=== PATIENT | female | born 1980 | race Two or more races ===

== ENCOUNTER 2023-12-03 10:47 | Emergency (ER) | payer BC, OTHER ==
[~2023-12-03] VITALS: Ht 160 cm; Wt 90.0 kg
[2023-12-03 11:14] LABS: Basophils # (auto) 0.1 10 ^3/uL (0-0.2); Basophils % (auto) 1.1 % (0.0-2.0); Eosinophils # (auto) 0.1 10 ^3/uL (0-0.8); Eosinophils % (auto) 1.4 % (0.0-7.0); Hematocrit 40.9 % (36.0-46.0); Hemoglobin 13.5 g/dL (12.2-16.2); Lymphocytes # (auto) 1.6 10 ^3/uL (0.4-5.4); Lymphocytes % (auto) 27.7 % (10.0-50.0); Mean Corpuscular Hgb Conc. 32.9 g/dL (32.0-36.0); Mean Corpuscular Volume 78.8 fL (80.0-100.0); Monocytes # (auto) 0.8 10 ^3/uL (0-1.3); Monocytes % (auto) 14.1 % (0.0-12.0); Neutrophils # (auto) 3.1 10 ^3/uL (1.6-8.6); Neutrophils % (auto) 55.7 % (37.0-80.0); Nucleated Red Blood Cells % 0.1 %; Red Blood Cells 5.19 10^6/uL (4.0-5.20); Red Cell Distribution Width 15.4 % (11.8-14.3); White Blood Cell 5.6 10^3/uL (4.4-10.8)
[2023-12-03 11:30] LABS: Alanine Aminotransferase 45 U/L (7-40); Alkaline Phosphatase 91 U/L (46-116); Anion Gap 8 (5-15); Aspartate Aminotransferase 50 U/L (13-40); BUN/Creatinine Ratio 11.6 (10.0-20.0); Blood Urea Nitrogen 10 mg/dL (9-23); Calcium 9.7 mg/dL (8.5-10.1); Carbon Dioxide 27 mmol/L (20-30); Chloride 101 mmol/L (98-107); Glucose 106 mg/dL (74-106); Potassium 3.2 mmol/L (3.5-5.1); Sodium 136 mmol/L (136-145)
[2023-12-03 11:31] LABS: Albumin 4.8 g/dL (3.2-4.8); Bilirubin, Total 0.3 mg/dL (0.2-1.0); Total Protein 7.8 g/dL (5.7-8.2)
[2023-12-03 16:24] VITALS: BP 105/70; PULSE 86; RESP 18; O2SAT 99
== END 2023-12-03 17:03 | disposition left against medical advice (07) ==
LOC: ER 10:47
DX: R07.89 Other chest pain (principal); I10 Essential (primary) hypertension; E78.5 Hyperlipidemia, unspecified; J45.909 Unspecified asthma, uncomplicated; Z53.29 Procedure and treatment not carried out because of patient's decision for other reasons
CPT/HCPCS: 36415; 71045; 80053; 84484; 85025; 93005

== ENCOUNTER → 2024-03-19 | Outpatient (CLI) | payer BC ==
[~2024-03-19] MED LIST: LISI20TA60 PO
== END | disposition home or self-care (01) ==
LOC: LAB 14:52
PROVIDERS: ATTEND Student in an Organized Health Care Education/Training Program
DX: Z01.812 Encounter for preprocedural laboratory examination (principal)
CPT/HCPCS: 81025

== ENCOUNTER → 2024-03-31 | Outpatient (CLI) | payer BC ==
[~2024-03-31] VITALS: Ht 160 cm; Wt 103.0 kg
[2024-03-31] MEDS: ADENOSINE 86 MG in GIVE UN-DILUTED 0 ML IV ONE (09:04)
== END | disposition home or self-care (01) ==
LOC: XYW 08:02
PROVIDERS: ATTEND Student in an Organized Health Care Education/Training Program
DX: I10 Essential (primary) hypertension (principal); R07.9 Chest pain, unspecified; R29.818 Other symptoms and signs involving the nervous system; E66.01 Morbid (severe) obesity due to excess calories
CPT/HCPCS: 78452; 93017; A9500; J0153

== ENCOUNTER 2024-04-06 09:08 | Emergency (ER) | payer BC ==
[~2024-04-06] VITALS: Ht 160 cm; Wt 103.2 kg
[2024-04-06 09:44] LABS: Basophils # (auto) 0.1 10 ^3/uL (0-0.2); Eosinophils # (auto) 0.2 10 ^3/uL (0-0.8); Eosinophils % (auto) 3.1 % (0.0-7.0); Hematocrit 41.8 % (36.0-46.0); Hemoglobin 13.9 g/dL (12.2-16.2); Lymphocytes # (auto) 2.4 10 ^3/uL (0.4-5.4); Lymphocytes % (auto) 36.1 % (10.0-50.0); Mean Corpuscular Hemoglobin 27.1 pg (28.0-32.0); Mean Corpuscular Hgb Conc. 33.2 g/dL (32.0-36.0); Mean Corpuscular Volume 81.7 fL (80.0-100.0); Monocytes # (auto) 0.3 10 ^3/uL (0-1.3); Monocytes % (auto) 5.1 % (0.0-12.0); Neutrophils # (auto) 3.7 10 ^3/uL (1.6-8.6); Neutrophils % (auto) 54.7 % (37.0-80.0); Nucleated Red Blood Cells % 0.2 %; Red Blood Cells 5.12 10^6/uL (4.0-5.20); Red Cell Distribution Width 16.4 % (11.8-14.3); White Blood Cell 6.7 10^3/uL (4.4-10.8)
[2024-04-06 09:48] LABS: Alanine Aminotransferase 25 U/L (7-40); Albumin 4.7 g/dL (3.2-4.8); Alkaline Phosphatase 84 U/L (46-116); Anion Gap 7 (5-15); Aspartate Aminotransferase 19 U/L (13-40); BUN/Creatinine Ratio 10.3 (10.0-20.0); Bilirubin, Total 0.4 mg/dL (0.2-1.0); Blood Urea Nitrogen 7 mg/dL (9-23); Carbon Dioxide 28 mmol/L (20-30); Chloride 102 mmol/L (98-107); Glucose 106 mg/dL (74-106); Potassium 3.5 mmol/L (3.5-5.1); Sodium 137 mmol/L (136-145); Total Protein 7.9 g/dL (5.7-8.2)
[2024-04-06 11:33] LABS: Urine Bacteria None Seen /hpf (None Seen)
[2024-04-06 11:52] LABS: Urine Blood 2+ /uL (Negative); Urine Clarity Clear (Clear); Urine Protein, UAD Negative (Negative); Urine Specific Gravity 1.011 (1.001-1.035); Urine Urobilinogen Normal (Negative); Urine WBC 3 /hpf (0 - 5)
[2024-04-06 11:55] LABS: Urine Color STRAW (Yellow)
[2024-04-06 17:07] VITALS: BP 146/82; PULSE 78; RESP 19; TEMP 98.1; O2SAT 98
== END 2024-04-06 17:09 | disposition home or self-care (01) ==
LOC: ER 09:08
DX: R07.89 Other chest pain (principal); I10 Essential (primary) hypertension; N88.4 Hypertrophic elongation of cervix uteri; E78.5 Hyperlipidemia, unspecified; J45.909 Unspecified asthma, uncomplicated; Z79.899 Other long term (current) drug therapy
CPT/HCPCS: 36415; 71045; 71260; 74177; 80053; 81001; 81025; 83690; 84484; 85025; 93005; 99285; Q9967

== ENCOUNTER → 2024-05-24 | Outpatient (CLI) | payer BC ==
[2024-05-24 08:34] LABS: Alanine Aminotransferase 28 U/L (7-40); Albumin 4.4 g/dL (3.2-4.8); Alkaline Phosphatase 78 U/L (46-116); Anion Gap 8 (5-15); Aspartate Aminotransferase 18 U/L (13-40); BUN/Creatinine Ratio 12.7 (10.0-20.0); Blood Urea Nitrogen 8 mg/dL (9-23); Calcium 9.3 mg/dL (8.7-10.4); Carbon Dioxide 25 mmol/L (20-30); Chloride 106 mmol/L (98-107); Glucose 101 mg/dL (74-106); Potassium 3.5 mmol/L (3.5-5.1); Sodium 139 mmol/L (136-145)
[2024-05-24 08:35] LABS: Bilirubin, Total 0.4 mg/dL (0.2-1.0); Total Protein 7.2 g/dL (5.7-8.2)
== END | disposition home or self-care (01) ==
LOC: LAB 07:29
PROVIDERS: ATTEND Internal Medicine
DX: I10 Essential (primary) hypertension (principal); K76.0 Fatty (change of) liver, not elsewhere classified; I70.1 Atherosclerosis of renal artery
CPT/HCPCS: 36415; 80053

== ENCOUNTER → 2025-01-04 | Outpatient (CLI) | payer BC ==
[2025-01-04 12:38] LABS: Anion Gap 10 (5-15); Carbon Dioxide 25 mmol/L (20-31); Chloride 103 mmol/L (98-107); Potassium 3.8 mmol/L (3.5-5.1); Sodium 138 mmol/L (136-145)
[2025-01-04 12:44] LABS: BUN/Creatinine Ratio 11.3 (10.0-20.0); Glucose 97 mg/dL (74-106)
[2025-01-04 12:47] LABS: Blood Urea Nitrogen 8 mg/dL (9-23)
== END | disposition home or self-care (01) ==
LOC: LAB 11:47
PROVIDERS: ATTEND Internal Medicine
DX: I10 Essential (primary) hypertension (principal)
CPT/HCPCS: 36415; 80048

== ENCOUNTER → 2025-01-19 | Outpatient (CLI) | payer BC ==
[2025-01-19 07:29] LABS: Urine Bacteria None Seen /hpf (None Seen)
[2025-01-19 07:52] LABS: Basophils # (auto) 0.1 10 ^3/uL (0-0.2); Eosinophils # (auto) 0.3 10 ^3/uL (0-0.8); Eosinophils % (auto) 4.4 % (0.0-7.0); Hemoglobin 14.5 g/dL (12.2-16.2); Lymphocytes # (auto) 2.6 10 ^3/uL (0.4-5.4); Lymphocytes % (auto) 38.5 % (10.0-50.0); Mean Corpuscular Hemoglobin 27.4 pg (28.0-32.0); Mean Corpuscular Volume 82.9 fL (80.0-100.0); Monocytes # (auto) 0.4 10 ^3/uL (0-1.3); Monocytes % (auto) 6.2 % (0.0-12.0); Neutrophils # (auto) 3.4 10 ^3/uL (1.6-8.6); Neutrophils % (auto) 49.9 % (37.0-80.0); Nucleated Red Blood Cells % 0.1 %; Platelet Count (auto) 315 10^3/uL (140-450); Red Blood Cells 5.31 10^6/uL (4.0-5.20); Red Cell Distribution Width 16.1 % (11.8-14.3); White Blood Cell 6.7 10^3/uL (4.4-10.8)
[2025-01-19 08:01] LABS: Alanine Aminotransferase 33 U/L (7-40); Albumin 4.7 g/dL (3.2-4.8); Alkaline Phosphatase 100 U/L (46-116); Anion Gap 9 (5-15); Aspartate Aminotransferase 27 U/L (13-40); BUN/Creatinine Ratio 8.6 (10.0-20.0); Calcium 9.8 mg/dL (8.7-10.4); Carbon Dioxide 25 mmol/L (20-31); Chloride 105 mmol/L (98-107); Potassium 4.2 mmol/L (3.5-5.1); Sodium 139 mmol/L (136-145); Total Protein 7.8 g/dL (5.7-8.2)
[2025-01-19 08:06] LABS: Bilirubin, Total 0.3 mg/dL (0.2-1.0); Blood Urea Nitrogen 6 mg/dL (9-23); Cholesterol 207 mg/dL (< 200); Glucose 122 mg/dL (74-106); HDL Cholesterol 37 mg/dL (40-59); LDL Cholesterol 157 mg/dL (< 100); Triglycerides 196 mg/dL (< 150)
[2025-01-19 08:30] LABS: Urine Blood Negative /uL (Negative); Urine Clarity Clear (Clear); Urine Color Light-Yellow (Yellow); Urine Mucus FEW (None Seen); Urine Protein, UAD TRACE (Negative); Urine Squamous Epithelial Cell FEW /hpf (<5); Urine Urobilinogen Normal (Negative); Urine WBC 2 /HPF (0-5); Urine pH 5.5 (5.0-9.0)
[2025-01-19 11:20] LABS: Free T4 (Free Thyroxine) 0.95 ng/dL (0.89-1.76)
== END | disposition home or self-care (01) ==
LOC: LAB 07:09
PROVIDERS: ATTEND Internal Medicine
DX: Z13.1 Encounter for screening for diabetes mellitus (principal); I10 Essential (primary) hypertension; K76.0 Fatty (change of) liver, not elsewhere classified; Z00.01 Encounter for general adult medical examination with abnormal findings
CPT/HCPCS: 36415; 80053; 80061; 81001; 82607; 83036; 84439; 84443; 85025

== ENCOUNTER → 2025-01-24 | Outpatient (CLI) | payer BC ==
[2025-01-24 14:53] LABS: Chloride 107 mmol/L (98-107); Potassium 3.9 mmol/L (3.5-5.1); Sodium 139 mmol/L (136-145)
[2025-01-24 14:54] LABS: Anion Gap 8 (5-15); Carbon Dioxide 24 mmol/L (20-31)
[2025-01-24 15:01] LABS: Blood Urea Nitrogen 8 mg/dL (9-23); Glucose 143 mg/dL (74-106)
== END | disposition home or self-care (01) ==
LOC: LAB 14:28
PROVIDERS: ATTEND Internal Medicine
DX: D21.9 Benign neoplasm of connective and other soft tissue, unspecified (principal)
CPT/HCPCS: 36415; 80048

== ENCOUNTER 2025-03-17 11:04 | Inpatient (IN) | payer BC ==
[~2025-03-17] VITALS: Ht 152.4 cm; Wt 105.0 kg
--- NOTE | 2025-03-17 11:21 | ECG ---
[facility] Test Date: 2025-03-17 Test Time: 11:09:44 Pat Name: BROOKE BAEZ Department: ER Room: [address] [place] [address] Gender: F Help Desk Agent: JOSIAS : 1980 Requested By: VANNESA MARINELLI Order Number: [id number] Reading MD: Jerry Valero Measurements Intervals [place] Rate: 58 P: 51 [place]: 133 QRS: 86 QRSD: 106 T: 35 QT: 448 QTc: 441 Interpretive Statements Sinus rhythm Electronically Signed On 03-17-2025 21:07:12 PDT by Jerry Valero Please click the below link to view image of tracing.
[2025-03-17] MEDS: ASPirin 81 mg TAB PO ONE (11:33)
[2025-03-17 11:42] LABS: Basophils # (auto) 0.1 10 ^3/uL (0-0.2); Basophils % (auto) 1.4 % (0.0-2.0); Eosinophils # (auto) 0.2 10 ^3/uL (0-0.8); Eosinophils % (auto) 3.7 % (0.0-7.0); Hemoglobin 13.2 g/dL (12.2-16.2); Lymphocytes # (auto) 2.4 10 ^3/uL (0.4-5.4); Lymphocytes % (auto) 37.1 % (10.0-50.0); Mean Corpuscular Hemoglobin 27.5 pg (28.0-32.0); Mean Corpuscular Hgb Conc. 33.9 g/dL (32.0-36.0); Mean Corpuscular Volume 81.3 fL (80.0-100.0); Monocytes # (auto) 0.5 10 ^3/uL (0-1.3); Monocytes % (auto) 7.3 % (0.0-12.0); Neutrophils # (auto) 3.3 10 ^3/uL (1.6-8.6); Neutrophils % (auto) 50.5 % (37.0-80.0); Platelet Count (auto) 410 10^3/uL (140-450); Red Cell Distribution Width 15.7 % (11.8-14.3); White Blood Cell 6.5 10^3/uL (4.4-10.8)
--- NOTE | 2025-03-17 11:47 | ED.PDOC ---
HPI Comments 45y F who presents to the ED for chief complaint of chest pain. Pt states she was at PCP office today for regular check up and states she was referred to the ED for further evaluation of her chest pain. Pt states her chest pain started 4 days prior, constant, pressure like in nature, with pain located diffusely across her chest, with no noted exacerbating or relieving factors. Pt has associated nausea but otherwise denies vomiting, diaphoresis, palpitations, fever, cough, chills, or shortness of breath. Pt otherwise states she was dx with diabetes and recently had been placed on Jiardance. Pt otherwise denies any other symptoms at this time. Chief Complaint: Chest Pain Time Seen by MD: 11:42 Primary Care Provider: DEONNA Lo Notes: Medications, Allergies Allergies: Coded Allergies: NO KNOWN ALLERGIES (Unverified , 12/03/23) Home Meds Active Scripts Lisinopril & Hydrochlorothiazi (Zestoretic) 1 Tab Tab, 1 TAB PO DAILY, #20 TAB Prov:LUPE BURGOS 02/19/24 Reported Medications Lisinopril (Lisinopril) 20 Mg Tab, 1 TAB PO DAILY 03/17/25 Information Source: Patient Mode of Arrival: Ambulatory Brought in by: self Severity: Moderate Timing: Days Duration: Since onset Prehospital treatment: None Location: Chest (R), Chest (L) Quality: Sharp, Pressure Onset: With Light Exertion Cardiac Risk Factors: HTN, Diabetes PE Risk Factors: None History of: None Modifying Factors: Nothing Associated Signs and Symptoms: N/V Past Medical History PAST MEDICAL HISTORY: Anxiety, Asthma, DM, High Lipids, HTN Surgical History: Denies all surgeries COUNTER CASER History: No Pertinent COUNTER CASER History Family History Family History: Reviewed,noncontributory to illness, No family hx of Cancer, No family hx of DM, No family hx of Heart charo, No family hx of HTN, No family hx ofKidney charo, No family hx of Liver charo, No family hx of Lung charo, No family hx of Stroke Social History Smoker: Non-Smoker Alcohol: Denies ETOH Use Drugs: Denies Drug Use Lives In: Home Constitutional: denies: chills, diaphoresis, fatigue, fever, malaise, sweats, weakness, others EENTM: denies: blurred vision, double vision, ear bleeding, ear discharge, ear drainage, ear pain, ear ringing, eye pain, eye redness, hearing loss, mouth pain, mouth swelling, nasal discharge, nose bleeding, nose congestion, nose pain, photophobia, tearing, throat pain, throat swelling, voice changes, others Respiratory: denies: cough, hemoptysis, orthopnea, SOB at rest, shortness of breath, SOB with excertion, stridor, wheezing, others Cardiovascular: reports: chest pain; denies: dizzy spells, diaphoresis, Dyspnea on exertion, edema, irregular heart beat, left arm pain, lightheadedness, palpitations, PND, syncope, others Gastrointestinal: reports: nausea; denies: abdomen distended, abdominal pain, blood streaked bowels, constipated, diarrhea, dysphagia, difficulty swallowing, hematemesis, melena, poor appetite, poor fluid intake, rectal bleeding, rectal pain, vomiting, others Genitourinary: denies: abnormal vagina bleeding, burning, dyspareunia, dysuria, flank pain, frequency, hematuria, incontinence, pain, , vagina discharge, urgency, others Neurological: denies: dizziness, fainting, headache, left sided numbness, left sided weakness, numbness, paresthesia, pre-existing deficit, right sided numbness, right sided weakness, seizure, speech problems, tingling, tremors, weakness, others Musculoskeletal: denies: back pain, gout, joint pain, joint swelling, muscle pain, muscle stiffness, neck pain, others Integumetry: denies: bruises, change in color, change in hair/nails, dryness, laceration, lesions, lumps, rash, wounds, others Allergic/Immunocompromised: denies: Difficulty Healing, Frequent Infections, Hives, Itching, others Hematologic/Lymphatic: denies: anemia, blood clots, easy bleeding, easy bruising, swollen glands, others Endocrine: denies: excessive hunger, excessive sweating, excessive thirst, excessive urination, flushing, intolerance to cold, intolerance to heat, unexpla ined weight gain, unexplained weight loss, others Psychiatric: denies: anxiety, bipolar disorder, depression, hopeless, panic disorder, schizophrenia, sleepless, suicidal, others All Other Systems: Reviewed and Negative Physical Exam General Appearance: Moderate Distress HEENT: Normal ENT Inspection, Pharynx Normal, TMs Normal Neck: Full Range of Motion, Non-Tender, Normal, Normal Inspection Respiratory: Chest Non-Tender, Lungs Clear, No Accessory Muscle Use, No Respiratory Distress, Normal Breath Sounds Cardiovascular: No Edema, No JVD, No Murmur, No Gallop, Normal Peripheral Pulses, Regular Rate/Rhythm Breast Exam: Deferred Gastrointestinal: No Organomegaly, Non Tender, No Pulsatile Mass, Normal Bowel Sounds, Soft Genitalia: Deferred Pelvic: Deferred Rectal: Deferred Extremities: No calf tenderness, Normal capillary refill, Normal inspection, Normal range of motion, Non-tender, No pedal edema Musculoskeletal : Apperance: Normal Neurologic: Alert, supervisor clam bed II-XII nml as Tested, No Motor Deficits, Normal Affect, Normal Mood, No Sensory Deficits Cerebellar Function: Normal Reflexes: Normal Skin: Dry, Normal Color, Warm Lymphatic: No Adenopathy EKG EKG : Pulse Rate (adult): 58 [place]: Normal Cardiac Rhythm: NSR Block: None Hypertrophy: None ST: Normal Was a procedure done? Was a procedure done?: No CP Differential Dx Differential Diagnosis: Angina, Anxiety / Panic Attack, Atrial Dysrhythmia, Electrolyte Disorder, Pulmonary Embolus, PVC's, Sinus Tachycardia Differential Diagnosis: HTN Essential, HTN Accelerated Differential Diagnosis: Chest Wall Pain X-Ray, Labs, Meds, VS Vital Signs Date Time Temp Pulse Resp B/P (MAP) Pulse Ox O2 Delivery O2 Flow Rate FiO2 03/17/25 12:53 61 17 97 Room Air 03/17/25 12:53 98.1 61 17 159/96 (117) 97 98.1 03/17/25 12:10 59 03/17/25 11:47 58 03/17/25 11:09 58 03/17/25 11:05 98.1 67 18 148/86 (106) 97 98.1 Lab Test 03/17/25 12:43 03/17/25 11:20 03/17/25 11:19 Range/Units Troponin I High Sensitivity < 3 L < 3 L </=34 ng/L White Blood Count 6.5 4.4-10.8 10^3/uL Red Blood Count 4.80 4.0-5.20 10^6/uL Hemoglobin 13.2 12.2-16.2 g/dL Hematocrit 39.0 36.0-46.0 % Mean Corpuscular Volume 81.3 80.0-100.0 fL Mean Corpuscular Hemoglobin 27.5 L 28.0-32.0 pg Mean Corpuscular Hemoglobin Concent 33.9 32.0-36.0 g/dL Red Cell Distribution Width 15.7 H 11.8-14.3 % Platelet Count 410 140-450 10^3/uL Mean Platelet Volume 7.5 6.9-10.8 fL Neutrophils (%) (Auto) 50.5 37.0-80.0 % Lymphocytes (%) (Auto) 37.1 10.0-50.0 % Monocytes (%) (Auto) 7.3 0.0-12.0 % Eosinophils (%) (Auto) 3.7 0.0-7.0 % Basophils (%) (Auto) 1.4 0.0-2.0 % Neutrophils # (Auto) 3.3 1.6-8.6 10 ^3/uL Lymphocytes # (Auto) 2.4 0.4-5.4 10 ^3/uL Monocytes # (Auto) 0.5 0-1.3 10 ^3/uL Eosinophils # (Auto) 0.2 0-0.8 10 ^3/uL Basophils # (Auto) 0.1 0-0.2 10 ^3/uL Nucleated Red Blood Cells 0.0 % D-Dimer, Quantitative 0.29 0.0-0.49 mg/L FEU Sodium Level 139 136-145 mmol/L Potassium Level 4.0 3.5-5.1 mmol/L Chloride Level 106 98-107 mmol/L Carbon Dioxide Level 24 20-31 mmol/L Anion Gap 9 5-15 Blood Urea Nitrogen 11 9-23 mg/dL Creatinine 0.60 0.550-1.02 mg/dL Glomerular Filtration Rate Calc 113 >90 mL/min BUN/Creatinine Ratio 18.3 10.0-20.0 Serum Glucose 93 74-106 mg/dL Hemoglobin A1c Pending Calcium Level 10.0 8.7-10.4 mg/dL Triglycerides Level Pending Cholesterol Level Pending LDL Cholesterol Pending HDL Cholesterol Pending Thyroid Stimulating Hormone (TSH) Pending POC Glucose 99 70-106 mg/dl Current Medications Medications (Trade) Dose Ordered Sig/Aviva Route Start Time Stop Time Status Last Admin Aspirin 162 mg ONCE ONCE PO 03/17/25 11:30 03/17/25 11:31 DC 03/17/25 11:33 XY CHEST TWO VIEWS ROUTINE IMPRESSION: No acute cardiopulmonary disease. IV Hep-Lock was established The patient was given aspirin 162 mg by mouth The patient's CBC is within normal limits The chemistry panel is within normal limits The troponin level x2 is negative At this time, the patient was being admitted to the hospitalist A cardiology consult will be obtained. Images Reviewed?: Images reviewed and evaluated by me Time of 1ST Reevaluation: 12:15 Reevaluation 1ST: Unchanged Patient Education/Counseling: Diagnosis, Treatment, Prognosis Family Education/Counseling: No Family Present Additional Information -Reviewed patient's previous visit(s): - The following tests were ordered, and results were reviewed by me: cbc, UA, ekg x3, trop x3, chest x ray, d-dimer, bmp - Additional information was gathered from interviewing the following [facility] Historian: none - I reviewed and agreed with the following test results read by other provider: radiologist - I discussed treatments and results with medical personnel and: patient Comprehensive systems review obtained and negative except for what is stated in the HPI. Departure 1 Departure Time of Disposition: 13:52 Impression: Primary Impression: Acute myocardial ischemia Disposition: 09 ADMITTED INPATIENT Admit to: Tele Condition: Fair Critical Care Note Critical Care Time?: Yes (45 min-critical care time only) Stability Stability form required: Yes Unstable for transfer: Telemetry monitoring (Telemetry monitoring required), ED Physician Assesment (Clinical assesment) Heart Score Heart Score: Heart Score Response (Comments) Value History Slightly Suspicious 0 EKG Normal 0 Age 45-64 1 Risk Factors 1 or 2 risk factors 1 Troponin Normal limit 0 Total 2 I personally scribed for VANNESA MARINELLI MD ([email or web address]) on 03/17/25 at 11:47. Electronically submitted by Ritchie Rayo ([email or web address]). I personally scribed for VANNESA MARINELLI MD ([email or web address]) on 03/17/25 at 12:40. Electronically submitted by Ritchie Rayo ([email or web address]). VANNESA MARINELLI MD March 17, 2025 11:47
[2025-03-17 11:55] LABS: Anion Gap 9 (5-15); Carbon Dioxide 24 mmol/L (20-31); Chloride 106 mmol/L (98-107); Sodium 139 mmol/L (136-145)
[2025-03-17 12:01] LABS: BUN/Creatinine Ratio 18.3 (10.0-20.0); Blood Urea Nitrogen 11 mg/dL (9-23); Glucose 93 mg/dL (74-106)
--- NOTE | 2025-03-17 12:21 | ECG ---
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
--- NOTE | 2025-03-17 12:26 | DVH ---
XY CHEST TWO VIEWS ROUTINE CLINICAL HISTORY: chest COMPARISON: None TECHNIQUE: Frontal and lateral view of the chest was obtained FINDINGS: Lines and Tubes: None Lungs: No focal consolidation. Pleura: No effusion. No pneumothorax. Cardiomediastinal contours: Unremarkable Bones: No acute osseous abnormality. IMPRESSION: No acute cardiopulmonary disease.
[2025-03-17] MEDS ORDERED: MORPHINE SULFATE INJ 2 MG/ml SYRG IV PRN (13:00)
[2025-03-17] MEDS ORDERED: NITROGLYCERIN 0.4 MG SL TAB SL PRN (13:00)
[2025-03-17] MEDS ORDERED: DEXTROSE (50%) 50ML SYRG IV PRN (13:00)
[2025-03-17] MEDS ORDERED: ACETAMINOPHEN 325 MG TAB PO PRN (13:00)
[2025-03-17] MEDS ORDERED: MORPHINE SULFATE 4 MG/ML SYR/VIAL IV PRN (13:00)
[2025-03-17] MEDS ORDERED: LISI20TA56 PO (13:28)
--- NOTE | 2025-03-17 13:43 | DVHHP2 ---
History of Present Illness Reason for Visit: Chest pain History of Present Illness Hannah Llamas is a 45-year-old female with past medical history of hypertension, hyperlipidemia, diabetes type 2, anxiety, asthma, and reported pericarditis who presents to the ED with chest pain x4 days. Patient states that the chest pain suddenly came about was 10/10 and pulling leg pressure constant in nature. She reports that the current pain is 6/10 pressure-like and constant. She reports that she went to her PCP today and was advised to come into the hospital to be evaluated. Patient reported that she was recently diagnosed with diabetes and was given Jardiance to take and developed joint pain in the knees, hands, elbows, shoulders and abdominal pain which then she stopped taking the medication. Patient also reports that he uses CBD gummies to help her with sleep. Patient reported that she took Advil to help with the chest pain but no difference noted. Patient denies any recent trauma or or injury, recent sick contacts, recent ingestion of spoiled food, recent travels, shortness of breath, fever, chills, lightheadedness, weakness, dizziness, nausea, vomiting, or diarrhea. Cardiovascular: HTN, hyperipidemia Pulmonary: Asthma Psych: Anxiety Endocrine: Diabetes Past Medical History Pericarditis Past Surgical History: None Family History: Hypertension, Other (Mom with hypertension) Smoke: No ALCOHOL: none Drugs: Other (CBD gummies) Lives: with Family Domestic Violence: Neg Review of Systems Cardiovascular: Chest Pain Allergies: Coded Allergies: NO KNOWN ALLERGIES (Unverified , 12/03/23) Exam Vital Signs Vital Signs Date Time Temp Pulse Resp B/P (MAP) Pulse Ox O2 Delivery O2 Flow Rate FiO2 03/17/25 12:53 61 17 97 Room Air 03/17/25 12:53 98.1 159/96 (117) 98.1 General Appearance: Alert, Oriented X3, Cooperative, No acute distress HEENT: Atraumatic, PERRLA, EOMI, Mucous membr. moist/pink Respiratory: Clear to auscultation, Normal air movement Cardiovascular: Normal S1, Normal S2, No murmurs Abdominal: Normal bowel sounds, Soft, No tenderness, No hepatospenomegaly, No masses Extremities: No clubbing, No cyanosis, Normal pulses Skin: No significant lesion Neuro: Normal gait, Normal speech, Strength at 5/5 X4 ext, Normal tone, Sensation intact Psych/Mental Status: Mental status NL, Mood NL Labs/Xrays Labs Test 03/17/25 12:43 03/17/25 11:20 03/17/25 11:19 Range/Units Troponin I High Sensitivity < 3 L </=34 ng/L White Blood Count 6.5 4.4-10.8 10^3/uL Red Blood Count 4.80 4.0-5.20 10^6/uL Hemoglobin 13.2 12.2-16.2 g/dL Hematocrit 39.0 36.0-46.0 % Mean Corpuscular Volume 81.3 80.0-100.0 fL Mean Corpuscular Hemoglobin 27.5 L 28.0-32.0 pg Mean Corpuscular Hemoglobin Concent 33.9 32.0-36.0 g/dL Red Cell Distribution Width 15.7 H 11.8-14.3 % Platelet Count 410 140-450 10^3/uL Mean Platelet Volume 7.5 6.9-10.8 fL Neutrophils (%) (Auto) 50.5 37.0-80.0 % Lymphocytes (%) (Auto) 37.1 10.0-50.0 % Monocytes (%) (Auto) 7.3 0.0-12.0 % Eosinophils (%) (Auto) 3.7 0.0-7.0 % Basophils (%) (Auto) 1.4 0.0-2.0 % Neutrophils # (Auto) 3.3 1.6-8.6 10 ^3/uL Lymphocytes # (Auto) 2.4 0.4-5.4 10 ^3/uL Monocytes # (Auto) 0.5 0-1.3 10 ^3/uL Eosinophils # (Auto) 0.2 0-0.8 10 ^3/uL Basophils # (Auto) 0.1 0-0.2 10 ^3/uL Nucleated Red Blood Cells 0.0 % D-Dimer, Quantitative 0.29 0.0-0.49 mg/L FEU Sodium Level 139 136-145 mmol/L Potassium Level 4.0 3.5-5.1 mmol/L Chloride Level 106 98-107 mmol/L Carbon Dioxide Level 24 20-31 mmol/L Anion Gap 9 5-15 Blood Urea Nitrogen 11 9-23 mg/dL Creatinine 0.60 0.550-1.02 mg/dL Glomerular Filtration Rate Calc 113 >90 mL/min BUN/Creatinine Ratio 18.3 10.0-20.0 Serum Glucose 93 74-106 mg/dL Calcium Level 10.0 8.7-10.4 mg/dL POC Glucose 99 70-106 mg/dl XY CHEST TWO VIEWS ROUTINE CLINICAL HISTORY: chest COMPARISON: None TECHNIQUE: Frontal and lateral view of the chest was obtained FINDINGS: Lines and Tubes: None Lungs: No focal consolidation. Pleura: No effusion. No pneumothorax. Cardiomediastinal contours: Unremarkable Bones: No acute osseous abnormality. IMPRESSION: No acute cardiopulmonary disease. Assessment/Plan Assessment/Plan Assessment Chest pain rule out ACS Morbid obesity Substance use History of hypertension History of hyperlipidemia History of diabetes type 2 History of anxiety History of asthma History of pericarditis patient reports Plan Admit to tele Chest x-ray noted Aspirin Antiemetics Pain management EKG Troponin negative D-dimer negative UA Hemoglobin A1c ISS and Accu-Cheks Echo ordered TSH UDS Lipid panel Diet Home medications reconciled DVT prophylaxis-not indicated patient ambulating PUD prophylaxis-not indicated no history of GERD or GI bleed Discussed plan of care with patient and nurse Counseled patient on cessation of substance use Counseled patient on lifestyle modifications, diet, and exercise Plan discussed with: Patient My Orders Orders - PAOLA HELLER BOBBIN DISKER Procedure Category Date Status Time Echo 2d Mode Cardiac US 03/17/25 Verified DOP 13:00 Thyroid Stimulating LAB 03/17/25 Verified Hormone 13:00 Drug Screen LAB 03/17/25 Verified 13:00 Lipid Panel LAB 03/17/25 Verified 13:00 Hemoglobin A1c LAB 03/17/25 Verified 13:00 Glucose Blood PHA 03/17/25 Verified (Accu-Chek Comfort 17:00 Mild Sliding Scale PHA 03/17/25 Verified 17:00 Dextrose 50% Syringe PHA 03/17/25 Verified 13:00 Admit ADMIT 03/17/25 Verified 13:00 Code Status CODE 03/17/25 Verified 13:00 Vital Signs KRISTEN 03/17/25 Verified 13:00 Cleaning Matron KRISTEN 03/17/25 Verified 13:00 Cardiac DIET 03/17/25 Verified Diet-2gna,Lofat,Lochol Lunch Aspirin Tablet PHA 03/18/25 Verified 10:00 Lipitor 40mg Hs PHA 03/17/25 Verified Hi-Intensity 22:00 Morphine Sulfate PHA 03/17/25 Verified Injection 13:00 Acetaminophen Tablet PHA 03/17/25 Verified (Tylenol Tablet) 13:00 Complete Blood Count LAB 03/18/25 Verified 04:00 Basic Metabolic Panel LAB 03/18/25 Verified 04:00 Magnesium LAB 03/18/25 Verified 04:00 Nitroglycerin PHA 03/17/25 Verified Sublingual (Ntrostat 13:00 Ondansetron Hcl PHA 03/17/25 Verified (Zofran) 13:00 Electrocardigram EKG 03/18/25 Verified 04:00 Troponin-I Hs LAB 03/17/25 Verified 13:00 Cardiac KRISTEN 03/17/25 Verified Rehabilitation - Outpa Nitroglycerin PHA 03/17/25 Verified Sublingual (Ntrostat 13:00 Morphine Sulfate PHA 03/17/25 Verified Injection 13:00 Stat Ekg For Chest KRISTEN 03/17/25 Verified Pain 13:00 Notify Md Of Changes KRISTEN 03/17/25 Verified From Base 13:00 [facility] 03/17/25 Verified 24 Hours 13:00 Emergency Dysrhythmia KRISTEN 03/17/25 Verified Protocol 13:00 Rhythm Strips Once KRISTEN 03/17/25 Verified Every Shift 13:00 Oxygen By Nasal RT 03/17/25 Verified Cannula 13:00 Lisinopril Tablet PHA 03/18/25 Verified (Zestril Tablet) 10:00 Date of Service: March 17, 2025 Billing Provider: PAOLA HELLER Common Visit Codes: [id number] INP/OBS CARE (HIGH) PAOLA HELLER March 17, 2025 13:42
[2025-03-17 13:55] LABS: HDL Cholesterol 41 mg/dL (40-59)
[2025-03-17 14:02] LABS: Cholesterol 212 mg/dL (< 200); LDL Cholesterol 161 mg/dL (< 100); Triglycerides 229 mg/dL (< 150)
[2025-03-17 14:28] LABS: Amphetamine Screen, Urine Neg (NEGATIVE); Barbiturate Scree,Urine Neg (NEGATIVE); Benzodiazephine Screen, Urine Neg (NEGATIVE); Cannabinoid Screen, Urine Pos (NEGATIVE); Cocaine Screen, Urine Neg (NEGATIVE); Opiate Scree,Urine Neg (NEGATIVE); Phencyclidine Screen, Urine Neg (NEGATIVE)
[2025-03-17] MEDS: ACCU-CHEK COMFORT CURVE STRIP VI SCH (16:49)
[2025-03-17 16:50] VITALS: BP 162/77; PULSE 65; RESP 18; TEMP 98.2; O2SAT 97
[2025-03-17] MEDS: InsuLIN REG 1unit/0.01ml Soln (100units/ml) SC SCH (16:50)
[2025-03-17] MEDS ORDERED: hydrALAZINE HCL 20 MG/ML VL IV ONE (17:15)
[2025-03-17] MEDS ORDERED: hydrALAZINE HCL 20 MG/ML VL IV PRN (17:15)
[2025-03-17] MEDS: hydrALAZINE HCL 20 MG/ML VL IV ONE (18:37)
[2025-03-17 21:00] VITALS: BP 172/82; PULSE 74; RESP 17; TEMP 98.4; O2SAT 98
[2025-03-17] MEDS: LISINOPRIL 20 MG TAB PO ONE (21:17)
[2025-03-17] MEDS: ATORVASTATIN 20 MG TAB PO SCH (21:17)
[2025-03-17 21:50] VITALS: BP 146/81
[2025-03-17] MEDS: NITROGLYCERIN 0.4 MG SL TAB SL PRN (21:57)
[2025-03-17] MEDS ORDERED: HYDROcodone-ACET 5/325MG TAB PO PRN (22:30)
[2025-03-17 22:40] VITALS: BP 144/80; PULSE 54; RESP 18; TEMP 97.6; O2SAT 99
[2025-03-18 01:00] VITALS: BP 155/85; PULSE 55; RESP 18; TEMP 97.9; O2SAT 98
[2025-03-18] MEDS: ONDANSETRON HCL 4 MG/2 ML VIAL IV PRN (04:42)
[2025-03-18 04:56] VITALS: BP 150/84
[2025-03-18 05:00] VITALS: BP 168/98; PULSE 73; RESP 18; TEMP 97.8; O2SAT 99
[2025-03-18 05:46] LABS: Basophils # (auto) 0.1 10 ^3/uL (0-0.2); Basophils % (auto) 0.8 % (0.0-2.0); Eosinophils # (auto) 0.4 10 ^3/uL (0-0.8); Eosinophils % (auto) 4.7 % (0.0-7.0); Hemoglobin 13.6 g/dL (12.2-16.2); Lymphocytes # (auto) 2.6 10 ^3/uL (0.4-5.4); Lymphocytes % (auto) 34.1 % (10.0-50.0); Mean Corpuscular Hemoglobin 27.1 pg (28.0-32.0); Mean Corpuscular Hgb Conc. 33.1 g/dL (32.0-36.0); Monocytes # (auto) 0.5 10 ^3/uL (0-1.3); Monocytes % (auto) 7.1 % (0.0-12.0); Neutrophils # (auto) 4.1 10 ^3/uL (1.6-8.6); Neutrophils % (auto) 53.3 % (37.0-80.0); Nucleated Red Blood Cells % 0.1 %; Platelet Count (auto) 421 10^3/uL (140-450); Red Cell Distribution Width 15.8 % (11.8-14.3); White Blood Cell 7.6 10^3/uL (4.4-10.8)
[2025-03-18 05:59] LABS: Anion Gap 11 (5-15); Carbon Dioxide 25 mmol/L (20-31); Chloride 104 mmol/L (98-107); Potassium 3.7 mmol/L (3.5-5.1); Sodium 140 mmol/L (136-145)
[2025-03-18 06:00] LABS: Calcium 9.5 mg/dL (8.7-10.4)
[2025-03-18 06:05] LABS: BUN/Creatinine Ratio 12.7 (10.0-20.0); Magnesium 2.1 mg/dL (1.6-2.6)
[2025-03-18 06:15] LABS: Blood Urea Nitrogen 8 mg/dL (9-23); Glucose 114 mg/dL (74-106)
[2025-03-18 08:00] VITALS: PULSE 56; PULSE 60; RESP 16; O2SAT 96
[2025-03-18 09:00] VITALS: BP 142/88; PULSE 60; RESP 18; TEMP 97.8; O2SAT 96
[2025-03-18] MEDS: LISINOPRIL 20 MG TAB PO SCH (09:56)
[2025-03-18] MEDS: ASPirin 81 mg TAB PO SCH (09:56)
--- NOTE | 2025-03-18 13:35 | DVHPN2 ---
Reviewed: Care Plan, H&P, Labs, Medications, Previous Orders, Radiology Changes from previous H/P or p: No Changes Cardiovascular: Chest Pain Objective Vitals Vital Signs Date Time Temp Pulse Resp B/P (MAP) Pulse Ox O2 Delivery O2 Flow Rate FiO2 03/18/25 09:56 142/88 03/18/25 09:00 97.8 60 18 96 97.8 03/18/25 08:00 Room Air* 0 21 Intake/Output Intake and Output 03/18/25 07:00 Intake Total 350 ml Balance 350 ml Intake Oral 350 ml # Voids 4 Medications Current Medications Medications Dose Ordered Sig/Aviva Route Start Time Stop Time Status Last Admin Dose Admin Diagnostic Test (Pha) 1 strip ACHS 03/17/25 17:00 03/18/25 11:55 1 STRIP Insulin Human Regular ACHS SC 03/17/25 17:00 Dextrose 50 ml UD PRN IV 03/17/25 13:00 Aspirin 81 mg DAILY PO 03/18/25 10:00 03/18/25 09:56 81 MG Atorvastatin Calcium 40 mg HS PO 03/17/25 22:00 03/17/25 21:17 40 MG Acetaminophen 650 mg Q6HP PRN PO 03/17/25 13:00 Ondansetron HCl 4 mg Q4HP PRN IV 03/17/25 13:00 03/18/25 04:42 4 MG Nitroglycerin 0.4 mg Q5MINP PRN SL 03/17/25 13:00 03/18/25 04:45 0.4 MG Morphine Sulfate 2 mg Q30M PRN IV 03/17/25 13:00 Lisinopril 20 mg DAILY PO 03/18/25 10:00 03/18/25 09:56 20 MG Hydralazine HCl 10 mg ONCE PRN IV 03/17/25 17:15 UNV Acetaminophen/ Hydrocodone Bitart 1 tab Q6HPRN PRN PO 03/17/25 22:30 Laboratory Results Laboratory Tests 03/18/25 05:11 Chemistry Test 03/18/25 05:11 Calcium Level 9.5 mg/dL (8.7-10.4) Magnesium Level 2.1 mg/dL (1.6-2.6) Labs and/or images reviewed: Labs reviewed by me, Image(s) reviewed by me Assessment/Plan Assessment/Plan Chest pain rule out coronary artery disease: Treatment per ACS protocol consult for Dr. Ritchie Benson Hypotension Hypercholesterolemia: Lipitor Type 2 diabetes: Insulin sliding scale Anxiety Asthma History of pericarditis Marijuana abuse Time spent 48 minutes Plan discussed with: Patient My Orders Orders - MADYSON MORA MD Procedure Category Date Status Time * Cardiology Consult CONS 03/18/25 Verified 13:31 Date of Service: March 18, 2025 Billing Provider: MADYSON MORA MD Common Visit Codes: [id number] INP/OBS CARE(HIGH) MADYSON MORA MD March 18, 2025 13:35
--- NOTE | 2025-03-18 17:16 | DVHINCON2 ---
Date of service: March 18, 2025 Referring Physician Smith Reason for Consultation Chest pain History of Present Illness This is a 45 year old female with a PMH of Anxiety, Asthma, DM, High Lipids, HTN who presents to the ED for a complaint of chest pain x4 days. Patient states she was at her PCP's office for regular check up and states she was referred to the ED for further evaluation of her chest pain. Patient described her chest pain as constant, pressure like in nature, with pain located diffusely across her chest, with no noted exacerbating or relieving factors. Patient has associated nausea. Patient notes she was diagnosed with diabetes and recently had been placed on J ardiance. Chest x-ray showed NAD. EKG is NSR at 58. Troponin is negative x3. Patient was admitted to the hospital. I am asked to consult on this patient. Family History: FH: cancer G8 MOTHER G8 FATHER Hypertension G8 MOTHER Allergies: Coded Allergies: Penicillins (Verified Allergy, Mild, 03/17/25) Home Meds Active Scripts Lisinopril & Hydrochlorothiazi (Zestoretic) 1 Tab Tab, 1 TAB PO DAILY, #20 TAB Prov:LUPE BURGOS 02/19/24 Reported Medications Lisinopril (Lisinopril) 20 Mg Tab, 1 TAB PO DAILY 03/17/25 Current Medications Current Medications Medications (Trade) Dose Ordered Sig/Aviva Route PRN Reason Start Time Stop Time Status Last Admin Diagnostic Test (Pha) (Accu-Chek Comfort Curve T) 1 strip ACHS 03/17/25 17:00 03/18/25 14:25 DC 03/18/25 11:55 Insulin Human Regular (InsuLIN R) ACHS SC 03/17/25 17:00 03/18/25 14:25 DC Aspirin 81 mg DAILY PO 03/18/25 10:00 03/18/25 14:25 DC 03/18/25 09:56 Atorvastatin Calcium (Lipitor) 40 mg HS PO 03/17/25 22:00 03/18/25 14:25 DC 03/17/25 21:17 Lisinopril (Zestril Tablet) 20 mg DAILY PO 03/18/25 10:00 03/18/25 14:25 DC 03/18/25 09:56 Hydralazine HCl (Apresoline Injection) 10 mg ONCE PRN IV SBP>150 03/17/25 17:15 UNV Acetaminophen/ Hydrocodone Bitart (Franklin 5/325MG Tab) 1 tab Q6HPRN PRN PO MODERATE PAIN (4-6 PAIN SCALE) 03/17/25 22:30 03/18/25 14:25 DC Review of Systems Constitutional: denies: chills, diaphoresis, fatigue, fever, malaise, sweats, weakness, others EENTM: denies: blurred vision, double vision, ear bleeding, ear discharge, ear drainage, ear pain, ear ringing, eye pain, eye redness, hearing loss, mouth pain, mouth swelling, nasal discharge, nose bleeding, nose congestion, nose pain, photophobia, tearing, throat pain, throat swelling, voice changes, others Respiratory: denies: cough, hemoptysis, orthopnea, SOB at rest, shortness of breath, SOB with excertion, stridor, wheezing, others Cardiovascular: reports: chest pain; denies: dizzy spells, diaphoresis, Dyspnea on exertion, edema, irregular heart beat, left arm pain, lightheadedness, palpitations, PND, syncope, others Gastrointestinal: reports: nausea; denies: abdomen distended, abdominal pain, blood streaked bowels, constipated, diarrhea, dysphagia, difficulty swallowing, hematemesis, melena, poor appetite, poor fluid intake, rectal bleeding, rectal pain, vomiting, others Genitourinary: denies: abnormal vagina bleeding, burning, dyspareunia, dysuria, flank pain, frequency, hematuria, incontinence, pain, , vagina discharge, urgency, others Neurological: denies: dizziness, fainting, headache, left sided numbness, left sided weakness, numbness, paresthesia, pre-existing deficit, right sided numbness, right sided weakness, seizure, speech problems, tingling, tremors, weakness, others Musculoskeletal: denies: back pain, gout, joint pain, joint swelling, muscle pain, muscle stiffness, neck pain, others Integumetry: denies: bruises, change in color, change in hair/nails, dryness, laceration, lesions, lumps, rash, wounds, others Allergic/Immunocompromised: denies: Difficulty Healing, Frequent Infections, Hives, Itching, others Hematologic/Lymphatic: denies: anemia, blood clots, easy bleeding, easy bruising, swollen glands, others Endocrine: denies: excessive hunger, excessive sweating, excessive thirst, excessive urination, flushing, intolerance to cold, intolerance to heat, unexplained weight gain, unexplained weight loss, others Psychiatric: denies: anxiety, bipolar disorder, depression, hopeless, panic disorder, schizophrenia, sleepless, suicidal, others All Other Systems: Reviewed and Negative Vital Signs Vital Signs Date Time Temp Pulse Resp B/P (MAP) Pulse Ox O2 Delivery O2 Flow Rate FiO2 03/18/25 09:56 142/88 03/18/25 09:00 97.8 60 18 96 97.8 03/18/25 08:00 Room Air* 0 21 Physical Exam GENERAL: Alert and oriented x 3. No acute distress. EYES: PERRL, EOMI. Anicteric. HENT: Moist mucous membranes. LUNGS: Clear to auscultation bilaterally. CARDIOVASCULAR: Regular rate and rhythm. ABDOMEN: Soft, nontender and nondistended. EXTREMITIES: No edema. NEUROLOGIC: No focal neurological deficits. SKIN: Warm, dry. Labs/Diagnostic Data Labs Test 03/18/25 11:48 03/18/25 05:11 03/17/25 14:16 03/17/25 11:30 Range/Units POC Glucose 103 70-106 mg/dl White Blood Count 7.6 4.4-10.8 10^3/uL Red Blood Count 5.00 4.0-5.20 10^6/uL Hemoglobin 13.6 12.2-16.2 g/dL Hematocrit 41.0 36.0-46.0 % Mean Corpuscular Volume 82.0 80.0-100.0 fL Mean Corpuscular Hemoglobin 27.1 L 28.0-32.0 pg Mean Corpuscular Hemoglobin Concent 33.1 32.0-36.0 g/dL Red Cell Distribution Width 15.8 H 11.8-14.3 % Platelet Count 421 140-450 10^3/uL Mean Platelet Volume 7.4 6.9-10.8 fL Neutrophils (%) (Auto) 53.3 37.0-80.0 % Lymphocytes (%) (Auto) 34.1 10.0-50.0 % Monocytes (%) (Auto) 7.1 0.0-12.0 % Eosinophils (%) (Auto) 4.7 0.0-7.0 % Basophils (%) (Auto) 0.8 0.0-2.0 % Neutrophils # (Auto) 4.1 1.6-8.6 10 ^3/uL Lymphocytes # (Auto) 2.6 0.4-5.4 10 ^3/uL Monocytes # (Auto) 0.5 0-1.3 10 ^3/uL Eosinophils # (Auto) 0.4 0-0.8 10 ^3/uL Basophils # (Auto) 0.1 0-0.2 10 ^3/uL Nucleated Red Blood Cells 0.1 % Sodium Level 140 136-145 mmol/L Potassium Level 3.7 3.5-5.1 mmol/L Chloride Level 104 98-107 mmol/L Carbon Dioxide Level 25 20-31 mmol/L Anion Gap 11 5-15 Blood Urea Nitrogen 8 L 9-23 mg/dL Creatinine 0.63 0.550-1.02 mg/dL Glomerular Filtration Rate Calc 111 >90 mL/min BUN/Creatinine Ratio 12.7 10.0-20.0 Serum Glucose 114 H 74-106 mg/dL Calcium Level 9.5 8.7-10.4 mg/dL Magnesium Level 2.1 1.6-2.6 mg/dL Troponin I High Sensitivity < 3 L </=34 ng/L Urine Opiates Screen Neg NEGATIVE Urine Fentanyl Screen Neg NEGATIVE Urine Barbiturates Screen Neg NEGATIVE Urine Phencyclidine Screen Neg NEGATIVE Urine Amphetamines Screen Neg NEGATIVE Urine Benzodiazepines Screen Neg NEGATIVE Urine Cocaine Screen Neg NEGATIVE Urine Cannabinoids Screen Pos NEGATIVE Test 03/17/25 11:20 Range/Units D-Dimer, Quantitative 0.29 0.0-0.49 mg/L FEU Hemoglobin A1c 6.2 H <5.7 % A1C Triglycerides Level 229 H < 150 mg/dL Cholesterol Level 212 H < 200 mg/dL LDL Cholesterol 161 H < 100 mg/dL HDL Cholesterol 41 40-59 mg/dL Thyroid Stimulating Hormone (TSH) 0.97 0.55-4.78 uIU/mL Assessment Chest pain. Morbid obesity. Substance use. Hypertension. Hyperlipidemia. Diabetes type 2. Anxiety. Asthma. Plan/Recommendation I agree with your ongoing assessment and care of plan. Telemetry reviewed. Echocardiogram. Aspirin, Lipitor. IV Hydralazine for SBP > 150. Morphine and Franklin for pain management. Additional plan as per the hospital course. A total of 45 minutes was spent reviewing the patient record, examining the patient, making a diagnostic and therapeutic plan, discussing this plan with medical personnel, following up on diagnostic studies and following the patient for clinical stability excluding any and all procedures. At least 50% of this time was spent in direct, [id number] contact. Plan discussed with: Patient SUZAN FELDER MD March 18, 2025 14:32
--- NOTE | 2025-03-19 07:53 | DVHDS2 ---
Discharge Summary Date of Admission March 17, 2025 at 13:00 Date of Discharge: March 18, 2025 Admitting Diagnosis Chest pain Wounds: None Labs/Diagnostic Data: Laboratory Results Test 03/18/25 11:48 03/18/25 05:11 03/17/25 14:16 03/17/25 11:30 POC Glucose 103 mg/dl (70-106) White Blood Count 7.6 10^3/uL (4.4-10.8) Red Blood Count 5.00 10^6/uL (4.0-5.20) Hemoglobin 13.6 g/dL (12.2-16.2) Hematocrit 41.0 % (36.0-46.0) Mean Corpuscular Volume 82.0 fL (80.0-100.0) Mean Corpuscular Hemoglobin 27.1 pg (28.0-32.0) Mean Corpuscular Hemoglobin Concent 33.1 g/dL (32.0-36.0) Red Cell Distribution Width 15.8 % (11.8-14.3) Platelet Count 421 10^3/uL (140-450) Mean Platelet Volume 7.4 fL (6.9-10.8) Neutrophils (%) (Auto) 53.3 % (37.0-80.0) Lymphocytes (%) (Auto) 34.1 % (10.0-50.0) Monocytes (%) (Auto) 7.1 % (0.0-12.0) Eosinophils (%) (Auto) 4.7 % (0.0-7.0) Basophils (%) (Auto) 0.8 % (0.0-2.0) Neutrophils # (Auto) 4.1 10 ^3/uL (1.6-8.6) Lymphocytes # (Auto) 2.6 10 ^3/uL (0.4-5.4) Monocytes # (Auto) 0.5 10 ^3/uL (0-1.3) Eosinophils # (Auto) 0.4 10 ^3/uL (0-0.8) Basophils # (Auto) 0.1 10 ^3/uL (0-0.2) Nucleated Red Blood Cells 0.1 % Sodium Level 140 mmol/L (136-145) Potassium Level 3.7 mmol/L (3.5-5.1) Chloride Level 104 mmol/L (98-107) Carbon Dioxide Level 25 mmol/L (20-31) Anion Gap 11 (5-15) Blood Urea Nitrogen 8 mg/dL (9-23) Creatinine 0.63 mg/dL (0.550-1.02) Glomerular Filtration Rate Calc 111 mL/min (>90) BUN/Creatinine Ratio 12.7 (10.0-20.0) Serum Glucose 114 mg/dL (74-106) Calcium Level 9.5 mg/dL (8.7-10.4) Magnesium Level 2.1 mg/dL (1.6-2.6) Troponin I High Sensitivity < 3 ng/L (</=34) Urine Opiates Screen Neg (NEGATIVE) Urine Fentanyl Screen Neg (NEGATIVE) Urine Barbiturates Screen Neg (NEGATIVE) Urine Phencyclidine Screen Neg (NEGATIVE) Urine Amphetamines Screen Neg (NEGATIVE) Urine Benzodiazepines Screen Neg (NEGATIVE) Urine Cocaine Screen Neg (NEGATIVE) Urine Cannabinoids Screen Pos (NEGATIVE) Test 03/17/25 11:20 D-Dimer, Quantitative 0.29 mg/L FEU (0.0-0.49) Hemoglobin A1c 6.2 % A1C (<5.7) Triglycerides Level 229 mg/dL (< 150) Cholesterol Level 212 mg/dL (< 200) LDL Cholesterol 161 mg/dL (< 100) HDL Cholesterol 41 mg/dL (40-59) Thyroid Stimulating Hormone (TSH) 0.97 uIU/mL (0.55-4.78) Other Laboratory Tests 03/18/25 05:11 Brief Hx & Hospital Course: 45-year-old female with a history of hypertension hypercholesterolemia diabetes anxiety asthma history of pericarditis chronic current marijuana abuse came in for chest pain troponin negative x3 treated per ACS protocol cardiology consult by Dr. Chaparro Benson cholesterol very high 220 placed on Lipitor. While awaiting further stabilization the patient decided to leave AMA and left AMA. General condition satisfactory at the time of leaving AMA per nurse's notes. Patient was explained about the consequences and complications of leaving AMA including possible and she verbalized understand Consults/Reason for consult Cardiology Dr. Ritchie Benson Operations or Procedures None Condition at Discharge: Fair Final Diagnosis/Problems List Chest pain rule out coronary artery disease: Treatment per ACS protocol consult for Dr. Ritchie Benson Hypotension Hypercholesterolemia: Lipitor Type 2 diabetes: Insulin sliding scale Anxiety Asthma History of pericarditis Marijuana abuse Discharge Disposition: AMA Discharge Instruct/Medications Diet comment: Not applicable Patient left AMA Activity comment: Not applicable Patient left AMA Follow Up/Referral: Not applicable Patient left AMA Medications: Not applicable Patient left AMA 39 (Time taken for discharge summary 39 mts) Discharge Statement: "Patient was advised to return to the ER or call 911 if any headaches, dizziness, shortness of breath, chest pain, abdominal pain, bleeding, fevers, or worsening of medical condition. Patient was counseled about treatment plan, medications, possible side effects, patientverbalized understanding. All questions were answered to the best of my ability. This discharge took greater then 30 minutes in planning, reviewing documentation, counseling the patient, and discussing with other team members." ASSESSMENT ASSESSMENT Hospital Course Left AMA Assessment Date of Service: March 19, 2025 Billing Provider: MADYSON MORA MD Common Visit Codes: 54325-JRJ/OBS DISCH DAY >30min MADYSON MORA MD March 19, 2025 07:53
--- NOTE | 2025-03-20 02:11 | DVHSR ---
APPROVED REPORT EXAM: Two-dimensional and M-mode echocardiogram with Doppler and color Doppler. Blood Pressure: 146/78 mmHg INDICATION Chest Pain RISK FACTORS Obesity: Height: 5'0, Weight: 213 DIMENSIONS LVDd4.3 (3.8-5.7cm)LA (2D)3.9 (1.9-4.0cm)Aortic Root2.8 (2.0-3.7cm) LVDs3.4 (2.5-4.0cm)LA (MM) (1.9-4.0cm)Aortic Cusp Exc1.8 (1.5-2.0cm) EF (%) 55.0 (55-70%)Rt. Atrium3.8 (1.9-4.0cm)Asc. Aorta cm IVSd1.2 (0.7-1.1cm)RV (D)4.2 (1.8-2.4cm) PWd1.0 (0.7-1.1cm) Mitral Valve MitralMitral Stenosis E wave0.75m/sMV Mean GR.mmHg A wave0.83m/sMV Peak GR.53mmHg E/A ratio0.92D MVAcm2 DECEL [id number] 1/2 Timems Aortic Valve Aortic ValveAortic Stenosis V11.01m/Duy Mean GR.3mmHg V21.19m/Duy Peak GR.5mmHg LVOT Diameter2.0 (1.8-2.4cm)Doppler AVA2.67cm2 Pulmonic Valve V21.17m/s Conclusion LV EF IS 65% NORMAL VALVES NORMAL RV FUNCTION NO EFFUSION
== END 2025-03-18 14:10 | disposition left against medical advice (07) | DRG 303 ==
LOC: ER 11:04 → OVERFLOW 13:00 → TELE-EAST 22:40
PROVIDERS: ADMIT Family Medicine; ATTEND Family Medicine
DX: I25.10 Atherosclerotic heart disease of native coronary artery without angina pectoris (principal); Z68.42 Body mass index [BMI] 45.0-49.9, adult; E66.01 Morbid (severe) obesity due to excess calories; Z53.29 Procedure and treatment not carried out because of patient's decision for other reasons; I10 Essential (primary) hypertension; E11.9 Type 2 diabetes mellitus without complications; F41.9 Anxiety disorder, unspecified; I95.9 Hypotension, unspecified; J45.909 Unspecified asthma, uncomplicated; F12.10 Cannabis abuse, uncomplicated; E78.00 Pure hypercholesterolemia, unspecified; I51.3 Intracardiac thrombosis, not elsewhere classified; Z82.49 Family history of ischemic heart disease and other diseases of the circulatory system; Z88.0 Allergy status to penicillin; Z79.899 Other long term (current) drug therapy
CPT/HCPCS: 36415; 71046; 80048; 80061; 80307; 82962; 83036; 83735; 84443; 84484; 85025; 85379; 93005; 93306; 96374; 99291; G0378; J2405

== ENCOUNTER 2025-03-22 23:18 | Inpatient (IN) | payer BC ==
[~2025-03-22] VITALS: Ht 160 cm; Wt 103.0 kg
[~2025-03-22 23:18] MED LIST changes: +LISI20TA56 PO
[2025-03-23] VITALS (8 sets, daily range): BP systolic 133–176; BP diastolic 76–100; PULSE 49–75; RESP 17–18; TEMP 97.4–97.8; O2SAT 93–100
[2025-03-23] MEDS: PANTOPRAZOLE 40 MG/10 ML VIAL INJ IV SCH (02:13)
[2025-03-23] MEDS: SUCRALFATE 1 GM TAB PO SCH (02:13)
[2025-03-23] MEDS: LABETALOL HCL 20 MG/4 ML VL IV ONE (02:14)
--- NOTE | 2025-03-23 03:38 | DVHHP2 ---
History of Present Illness History of Present Illness 45-year-old female with PMHx of hypertension, hyperlipidemia, prediabetes, anxiety, asthma?, and prior episode of pericarditis?, presenting with recurrent chest pain. She was previously seen in the ED on 03/17/25 with sudden-onset 10/10 chest pain radiating to the left leg. She was advised to follow up by her PCP due to abnormal vitals and symptoms but left AMA citing family responsibilities. At that time, troponins were negative, EKG showed NSR with HR in the 50s, and BP was elevated. She now returns due to persistent chest pain radiating to the shoulder and left arm, exacerbated by movement and palpation. On arrival, BP was >200/100, consistent with hypertensive emergency. She denies fever, chills, cough, SOB, or syncope. Troponins again negative. EKG repeated showing NSR, HR 56. She now agrees to stay for evaluation and management. PMHx: HTN, hyperlipidemia, prediabetes asthma, anxiety, prior pericarditis? PSHx: None Meds: Lisinopril 20 mg CBD gummies FHx: Mother with hypertension SHx: No tobacco, no alcohol, uses CBD Allergies: NKDA Review of Systems Review of Systems ROS: Positive for chest pain; otherwise negative Allergies: Coded Allergies: Penicillins (Verified Allergy, Mild, 03/17/25) Medications Current Medications Medications Dose Ordered Sig/Aviva Route Start Time Stop Time Status Last Admin Dose Admin Enoxaparin Sodium 40 mg DAILY SC 03/23/25 10:00 UNV Aspirin 81 mg DAILY PO 03/23/25 10:00 Pantoprazole Sodium 40 mg DAILY IV 03/23/25 01:30 03/23/25 02:13 40 MG Sucralfate 1 gm QIDACHS PO 03/23/25 01:30 03/23/25 02:13 1 GM Exam Vital Signs Vital Signs Date Time Temp Pulse Resp B/P (MAP) Pulse Ox O2 Delivery O2 Flow Rate FiO2 03/23/25 02:14 59 210/96 03/23/25 02:02 Room Air* 0 21 Exam Physical Exam: Gen: Alert, oriented x3, NAD CV: RRR, no murmurs/rubs/gallops Resp: CTAB Abd: Soft, NTND Ext: No edema, no cyanosis Neuro: A&O x3, no focal deficits Skin: Warm, well perfused Psych: Mood appropriate Assessment/Plan Assessment/Plan #Hypertensive emergency #Chest pain #Rule out ACS #Hypertension #Hyperlipidemia ASCV 4.5% #Obesity #CBD use #Anxiety #Prediabetes EKG: NSR HR 56, trops neg Admit Med surg Labetalol 10 mg Aspirin 81 mg Protonix IV Lisinopril 40 mg Cardiology consult for possible stress test advised by PCP Case discussed with Dr Florez Full code Plan discussed with: Patient, Other My Orders Orders - ADARSH BERNAL Procedure Category Date Status Time Admit ADMIT 03/23/25 Transmitted 01:09 Code Status CODE 03/23/25 Transmitted 01:09 Vital Signs [facility] 03/23/25 In Process 01:09 Review Orders With [facility] 03/23/25 In Process Adm. 01:09 Consistent DIET 03/23/25 Transmitted Carb(Ccho)Diabetes Breakfast Notify Md Of Changes [facility] 03/23/25 In Process From Base 01:09 Advance Directive KRISTEN 03/23/25 In Process 01:09 Basic Metabolic Panel LAB 03/23/25 Logged 01:09 Urinalysis LAB 03/23/25 Logged 01:09 Patient Condition ORDERS 03/23/25 Transmitted 01:09 Allergies KRISTEN 03/23/25 In Process 01:09 Drug Screen LAB 03/23/25 Logged 01:09 Enoxaparin Sodium PHA 03/23/25 Pending (Lovenox) 10:00 Troponin-I Hs LAB 03/23/25 Logged 01:09 Electrocardigram EKG 03/23/25 Logged 01:09 Aspirin Tablet PHA 03/23/25 In Process 10:00 Pantoprazole PHA 03/23/25 In Process (Protonix) 01:30 Sucralfate Tab PHA 03/23/25 In Process (Carafate Tab) 01:30 Date of Service: March 23, 2025 Billing Provider: NATHALY FLOREZ MD Common Visit Codes: [id number] INP/OBS CARE (HIGH) Secondary Visit Codes: [id number] CARE PLAN 30 MINUTES ADARSH BERNAL March 23, 2025 03:38
[2025-03-23 04:15] LABS: Alanine Aminotransferase 28 U/L (7-40); Albumin 4.5 g/dL (3.2-4.8); Alkaline Phosphatase 92 U/L (46-116); Anion Gap 12 (5-15); Aspartate Aminotransferase 23 U/L (13-40); BUN/Creatinine Ratio 10.8 (10.0-20.0); Bilirubin, Total 0.5 mg/dL (0.2-1.0); Calcium 9.2 mg/dL (8.7-10.4); Carbon Dioxide 21 mmol/L (20-31); Chloride 104 mmol/L (98-107); Glucose 102 mg/dL (74-106); Potassium 3.6 mmol/L (3.5-5.1); Sodium 137 mmol/L (136-145); Total Protein 7.4 g/dL (5.7-8.2)
[2025-03-23 04:16] LABS: Blood Urea Nitrogen 7 mg/dL (9-23)
[2025-03-23] MEDS: LISINOPRIL 20 MG TAB PO SCH (04:47)
[2025-03-23 06:28] LABS: Basophils # (auto) 0.1 10 ^3/uL (0-0.2); Eosinophils # (auto) 0.2 10 ^3/uL (0-0.8); Hemoglobin 13.6 g/dL (12.2-16.2); Lymphocytes # (auto) 2.6 10 ^3/uL (0.4-5.4)
[2025-03-23 06:31] LABS: Basophils % (auto) 0.8 % (0.0-2.0); Eosinophils % (auto) 3.2 % (0.0-7.0); Hematocrit 40.7 % (36.0-46.0); Lymphocytes % (auto) 34.2 % (10.0-50.0); Mean Corpuscular Hemoglobin 27.4 pg (28.0-32.0); Mean Corpuscular Hgb Conc. 33.5 g/dL (32.0-36.0); Mean Corpuscular Volume 81.8 fL (80.0-100.0); Monocytes # (auto) 0.4 10 ^3/uL (0-1.3); Monocytes % (auto) 5.7 % (0.0-12.0); Neutrophils # (auto) 4.3 10 ^3/uL (1.6-8.6); Neutrophils % (auto) 56.1 % (37.0-80.0); Platelet Count (auto) 413 10^3/uL (140-450); Red Blood Cells 4.98 10^6/uL (4.0-5.20); Red Cell Distribution Width 15.3 % (11.8-14.3); White Blood Cell 7.7 10^3/uL (4.4-10.8)
[2025-03-23] MEDS: REGADENOSON 0.4 MG/5 ML SYRG IV ONE ×2 (11:04→11:05)
--- NOTE | 2025-03-23 11:04 | DVHINCON2 ---
MILLIE PAINTING [facility] 03/23/25 1104: Date Seen: March 23, 2025 Referring Physician MD Kd Reason for Consultation Chest pain History of Present Illness This is a 45-year-old female with past medical history of hypertension, dyslipidemia, prediabetes, anxiety and asthma transfer from [facility], had admitted due to chest pain. Per patient, yesterday upon waking up from sleep, developed left-sided chest pain. She describes the pain sharp, 9/10 in intensity, radiates to the left shoulder and left side of neck, worsened with taking deep breath, changing position and lying flat on the bed, mildly improved upon lying at 30-45 degree. Per patient, she has an intermittent chest pain since 4 years, with no clear exacerbating or relieving factor, previously the pain was substernal and diffuse, but this time she localizes the pain with 1 finger at left lower sternal border and reproducible with palpation. She also reports nausea, shortness of breaths, and dry cough. She denies fever, vomiting, palpitation, or any recent sick contacts and trauma. Previous hospitalization: She was recently at 03/17/2025 had admitted at hospital with same presentation, Dr. Benson evaluated and recommended medical management, later on the patient left AMA. PMHx: hypertension, dyslipidemia, prediabetes, anxiety, insomnia, asthma (had underwent PFT, but does not take any medicine at the moment), renal artery stenosis (per patient, for years back she underwent renal artery angiography and found to of renal artery stenosis, but per her education specialist she did not require stent, no record available) PSHx: Not significant Family history: Mother has hypertension and prediabetes Social history: Denies smoking, alcohol or any other drug use Home medication: Lisinopril 20 mg, CBD (for insomnia), inhaler p.r.n. Allergic history: Penicillins Patient seen and examined at the bedside. Patient feeling better since admission, still complaining of mild chest pain. Past Medical History Per H&P Past Surgical History Per H&P Family History: Diabetes mellitus G8 MOTHER FH: cancer Hypertension G8 MOTHER Family History Per H&P Social History Per H&P Allergies: Coded Allergies: Penicillins (Verified Allergy, Mild, 03/17/25) Home Meds Active Scripts Lisinopril & Hydrochlorothiazi (Zestoretic) 1 Tab Tab, 1 TAB PO DAILY, #20 TAB Prov:LUPE BURGOS PA 02/19/24 Reported Medications Lisinopril (Lisinopril) 20 Mg Tab, 1 TAB PO DAILY 03/17/25 Current Medications Current Medications Medications (Trade) Dose Ordered Sig/Aviva Route PRN Reason Start Time Stop Time Status Last Admin Enoxaparin Sodium (Lovenox) 40 mg DAILY SC 03/23/25 10:00 Aspirin 81 mg DAILY PO 03/23/25 10:00 Pantoprazole Sodium (Protonix) 40 mg DAILY IV 03/23/25 01:30 03/23/25 02:13 Sucralfate (Carafate Tab) 1 gm QIDACHS PO 03/23/25 01:30 03/23/25 06:42 Lisinopril (Zestril Tablet) 40 mg DAILY PO 03/23/25 04:45 03/23/25 04:47 Atorvastatin Calcium (Lipitor) 80 mg HS PO 03/23/25 08:45 Review of Systems Per H&P Vital Signs Vital Signs Date Time Temp Pulse Resp B/P (MAP) Pulse Ox O2 Delivery O2 Flow Rate FiO2 03/23/25 07:59 97.7 60 18 133/76 (95) 99 97.7 03/23/25 02:02 Room Air* 0 21 Physical Exam General Appearance: Alert, Oriented X3, Cooperative, No acute distress HEENT: Atraumatic, PERRLA, EOMI, Mucous membrane moist/pink Respiratory: Left-sided chest tenderness upon palpation Cardiovascular: Regular rate, Normal S1, Normal S2, No murmurs, no chest wall tenderness Abdominal: Normal bowel sounds, Soft, No tenderness, No hepatospenomegaly, No masses Extremities: No clubbing, No cyanosis, No edema, Normal pulses, No tenderness/swelling Skin: No rashes, No breakdown, No significant lesion Neuro: Normal gait, Normal speech, Strength at 5/5 X4 ext, Normal tone, Sensati on intact, Cranial nerves 3-12 NL, Reflexes 2+ Psych/Mental Status: Mental status NL, Mood NL Labs/Diagnostic Data Labs Test 03/23/25 05:47 03/23/25 03:42 Range/Units White Blood Count 7.7 4.4-10.8 10^3/uL Red Blood Count 4.98 4.0-5.20 10^6/uL Hemoglobin 13.6 12.2-16.2 g/dL Hematocrit 40.7 36.0-46.0 % Mean Corpuscular Volume 81.8 80.0-100.0 fL Mean Corpuscular Hemoglobin 27.4 L 28.0-32.0 pg Mean Corpuscular Hemoglobin Concent 33.5 32.0-36.0 g/dL Red Cell Distribution Width 15.3 H 11.8-14.3 % Platelet Count 413 140-450 10^3/uL Mean Platelet Volume 7.4 6.9-10.8 fL Neutrophils (%) (Auto) 56.1 37.0-80.0 % Lymphocytes (%) (Auto) 34.2 10.0-50.0 % Monocytes (%) (Auto) 5.7 0.0-12.0 % Eosinophils (%) (Auto) 3.2 0.0-7.0 % Basophils (%) (Auto) 0.8 0.0-2.0 % Neutrophils # (Auto) 4.3 1.6-8.6 10 ^3/uL Lymphocytes # (Auto) 2.6 0.4-5.4 10 ^3/uL Monocytes # (Auto) 0.4 0-1.3 10 ^3/uL Eosinophils # (Auto) 0.2 0-0.8 10 ^3/uL Basophils # (Auto) 0.1 0-0.2 10 ^3/uL Nucleated Red Blood Cells 0.0 % B-Type Natriuretic Peptide 28.39 0-100 pg/mL Sodium Level 137 136-145 mmol/L Potassium Level 3.6 3.5-5.1 mmol/L Chloride Level 104 98-107 mmol/L Carbon Dioxide Level 21 20-31 mmol/L Anion Gap 12 5-15 Blood Urea Nitrogen 7 L 9-23 mg/dL Creatinine 0.65 0.550-1.02 mg/dL Glomerular Filtration Rate Calc 111 >90 mL/min BUN/Creatinine Ratio 10.8 10.0-20.0 Serum Glucose 102 74-106 mg/dL Calcium Level 9.2 8.7-10.4 mg/dL Magnesium Level 2.3 1.6-2.6 mg/dL Total Bilirubin 0.5 0.2-1.0 mg/dL Aspartate Amino Transferase (AST) 23 13-40 U/L Alanine Aminotransferase (ALT) 28 7-40 U/L Alkaline Phosphatase 92 46-116 U/L Troponin I High Sensitivity 4 </=34 ng/L Total Protein 7.4 5.7-8.2 g/dL Albumin 4.5 3.2-4.8 g/dL Assessment Chest pain, noncardiac, likely due to musculoskeletal/costochondritis Hypertensive urgency Sinus bradycardia History of renal artery stenosis Dyslipidemia Prediabetes Anxiety, insomnia * EKGs shows, sinus bradycardia at 50s, with no significant ST or T-wave changes * Echo on 03/20/2025 showed, normal LV and RV function/size, with LVEF 65% * Cardiolite stress test on 03/31/2024, and todays Cardiolite stress test showed normal study with near homogeneous uptake of radioactive tracer without evidence of myocardial infarction/ischemia * Trop I is within normal limits Plan/Recommendation (Case discussed with Dr. Flanagan) * Continue lisinopril 40 mg daily * Keep K above 4, and Mag above 2 * Considering patients presentation, normal Troponin, no ischemic finding on EKG, normal stress test, no further cardiology workup is needed at the moment, we sigh out the patient, follow on out patient with cardiology. Thank you for allowing us to participate in this patient's care. Please call if you have any questions or concerns. Plan discussed with: Patient, Other (RN) NYHA Physical activity limitations: NA Date of Service: March 23, 2025 Billing Provider: AMAN FLANAGAN DO Cardiology Common Codes: [id number] INP/OBS CARE (High) AMAN FLANAGAN DO 03/23/252131: Date Seen: March 23, 2025 Family History: Diabetes mellitus G8 MOTHER FH: cancer Hypertension G8 MOTHER Allergies: Coded Allergies: Penicillins (Verified Allergy, Mild, 03/17/25) Home Meds Active Scripts Lisinopril & Hydrochlorothiazi (Zestoretic) 1 Tab Tab, 1 TAB PO DAILY, #20 TAB Prov:LUPE BURGOS 02/19/24 Reported Medications Lisinopril (Lisinopril) 20 Mg Tab, 1 TAB PO DAILY 03/17/25 Plan/Recommendation Patient was discussed with Resident Physician Dr. Millie Painting. I agree with his Assessment and Plan, which was formulated with me. Plan discussed with: Patient Date of Service: March 23, 2025 Billing Provider: AMAN FLANAGAN DO Cardiology Common Codes: [id number] INP/OBS CARE (High) MILLIE PAINTING RESDIENT March 23, 2025 11:04 AMAN FLANAGAN DO March 23, 2025 21:32
[2025-03-23] MEDS: ENOXAPARIN SOD 40 MG/0.4 ML SYRINGE SC SCH (13:31)
[2025-03-23] MEDS: ASPirin 81 mg TAB PO SCH (13:32)
[2025-03-23] MEDS: ATORVASTATIN 20 MG TAB PO SCH (13:32)
--- NOTE | 2025-03-23 13:43 | DVHPN2 ---
Reviewed: Care Plan, H&P, Labs, Medications, Previous Orders, Radiology Changes from previous H/P or p: No Changes Objective Vitals Vital Signs Date Time Temp Pulse Resp B/P (MAP) Pulse Ox O2 Delivery O2 Flow Rate FiO2 03/23/25 12:40 97.6 72 18 164/76 (105) 99 97.6 03/23/25 02:02 Room Air* 0 21 Intake/Output Intake and Output 03/23/25 07:00 Intake Total 400 ml Balance 400 ml Intake Tube Feeding 400 ml # Voids 4 Medications Current Medications Medications Dose Ordered Sig/Aviva Route Start Time Stop Time Status Last Admin Dose Admin Enoxaparin Sodium 40 mg DAILY SC 03/23/25 10:00 03/23/25 13:31 40 MG Aspirin 81 mg DAILY PO 03/23/25 10:00 03/23/25 13:32 81 MG Pantoprazole Sodium 40 mg DAILY IV 03/23/25 01:30 03/23/25 12:43 40 MG Sucralfate 1 gm QIDACHS PO 03/23/25 01:30 03/23/25 13:31 1 GM Lisinopril 40 mg DAILY PO 03/23/25 04:45 03/23/25 04:47 40 MG Atorvastatin Calcium 80 mg HS PO 03/23/25 08:45 03/23/25 13:32 80 MG Laboratory Results Laboratory Tests 03/23/25 03:42 03/23/25 05:47 Chemistry Test 03/23/25 03:42 Albumin 4.5 g/dL (3.2-4.8) Calcium Level 9.2 mg/dL (8.7-10.4) Magnesium Level 2.3 mg/dL (1.6-2.6) Total Protein 7.4 g/dL (5.7-8.2) Lipid panel Test 03/23/25 03:42 Lipase 32 U/L (12-53) Cardiac Markers Test 03/23/25 05:47 B-Type Natriuretic Peptide 28.39 pg/mL (0-100) LFT Test 03/23/25 03:42 Alanine Aminotransferase (ALT) 28 U/L (7-40) Alkaline Phosphatase 92 U/L (46-116) Aspartate Amino Transferase (AST) 23 U/L (13-40) Total Bilirubin 0.5 mg/dL (0.2-1.0) Microbiology Microbiology Date/Time Source Procedure Growth Status 03/23/25 05:55 Nose MRSA Screen - Final Complete Labs and/or images reviewed: Labs reviewed by me, Image(s) reviewed by me Assessment/Plan Assessment/Plan Chest pain, noncardiac, likely due to musculoskeletal/costochondritis cardiology consult appreciated Hypertensive urgency Sinus bradycardia History of renal artery stenosis Dyslipidemia Prediabetes Anxiety, insomnia Cardiolite stress test 03/31/2024 negative Echo 03/20/2025 65 % ejection fraction Plan discussed with: Patient Date of Service: March 23, 2025 Billing Provider: MADYSON MORA MD Common Visit Codes: [id number] INP/OBS CARE(HIGH) MADYSON MORA MD March 23, 2025 13:43
[2025-03-23] MEDS ORDERED: cloNIDine HCL 0.1 MG TAB PO PRN ×2 (14:00→14:15)
[2025-03-23] MEDS: cloNIDine HCL 0.1 MG TAB PO PRN (14:29)
--- NOTE | 2025-03-23 16:22 | DVHSR ---
APPROVED REPORT Exam: Nuclear Stress Test BMI: 0 Stress Test Details HR Max Heart Rate (APMHR): 175.752728 bpm Target HR (85% APMHR): 148.189103 bpm BP ECG Stress ECG Conclusion lvef 61% no severe ischemia noted NM EXAM: Myocardial Perfusion REST/STRESS Imaging Protocol: Rest Tc-99m/Stress Tc-99m 1 day Resting Data Rest SPECT myocardial perfusion imaging was performed in supine position 60 minutes following the int ravenous injection of 12 mCi of Tc-99m Sestamibi. Time of rest injection: 10:20 Date: 03/23/2025 Time of rest imagin:20 Date: 03/23/2025 Administration Route: IV Administration Site: Right Hand Pharmacologic Stress Pharmacologic stress test was performed by injecting Regadenoson 0.4 mg IV push followed by the intra venous injection of 31.0 mCi of Tc-99m Sestamibi. Time of stress injection: 11:06 Date: 03/23/2025 Time of stress imagin:06 Date: 03/23/2025 Administration Route: IV Administration Site: Right Hand Gated Stress SPECT was performed 60 minutes after stress injection. The images were gated to evaluate regional wall motion and calculate left ventricular ejection fracti on. Stress only was performed in the position. Nuclear Conclusion lvef 61% no severe ischemia noted
[2025-03-23] MEDS: ONDANSETRON HCL 4 MG/2 ML VIAL IV PRN (16:25)
[2025-03-23] MEDS: ACETAMINOPHEN 325 MG TAB PO PRN (23:00)
[2025-03-24] VITALS (7 sets, daily range): BP systolic 101–168; BP diastolic 56–88; PULSE 53–66; RESP 16–22; TEMP 97.5–98.3; O2SAT 89–99
--- NOTE | 2025-03-24 18:04 | DVHPN2 ---
Subjective Seen and examined at bedside, stress test negative. Reviewed: Care Plan, H&P, Labs, Medications, Previous Orders, Radiology Changes from previous H/P or p: No Changes Objective Vitals Vital Signs Date Time Temp Pulse Resp B/P (MAP) Pulse Ox O2 Delivery O2 Flow Rate FiO2 03/24/25 17:39 168/88 03/24/25 17:30 97.8 66 17 99 97.8 03/24/25 08:10 Room Air* 0 21 Intake/Output Intake and Output 03/24/25 07:00 Intake Total 475 ml Balance 475 ml Intake Oral 475 ml # Voids 6 # Bowel Movements 1 General Appearance: Alert, Oriented X3, Cooperative, No acute distress Lungs: Clear to auscultation Cardiovascular: Regular rate, Normal S1, Normal S2 Abdomen: Normal bowel sounds, Soft Psych/Mental Status: Mental status NL Medications Current Medications Medications Dose Ordered Sig/Aviva Route Start Time Stop Time Status Last Admin Dose Admin Pantoprazole Sodium 40 mg DAILY IV 03/23/25 01:30 03/24/25 10:02 40 MG Sucralfate 1 gm QIDACHS PO 03/23/25 01:30 03/24/25 17:24 1 GM Lisinopril 40 mg DAILY PO 03/23/25 04:45 03/24/25 10:03 40 MG Atorvastatin Calcium 80 mg HS PO 03/23/25 08:45 03/23/25 22:20 80 MG Clonidine HCl 0.2 mg PRN PRN PO 03/23/25 14:00 UNV Clonidine HCl 0.2 mg Q6HP PRN PO 03/23/25 14:15 03/24/25 17:39 0.2 MG Ondansetron HCl 4 mg Q4HPRN PRN IV 03/23/25 16:15 03/23/25 16:25 4 MG Morphine Sulfate 2 mg Q6HPRN PRN IV 03/23/25 16:45 Acetaminophen 650 mg Q6HP PRN PO 03/23/25 16:45 03/23/25 23:00 650 MG Laboratory Results Laboratory Tests 03/23/25 03:42 03/23/25 05:47 Microbiology Microbiology Date/Time Source Procedure Growth Status 03/23/25 05:55 Nose MRSA Screen - Final Complete Assessment/Plan Assessment/Plan Chest pain, noncardiac, likely due to musculoskeletal/costochondritis cardiology consult appreciated Hypertensive urgency Sinus bradycardia History of renal artery stenosis Dyslipidemia Prediabetes Anxiety, insomnia Cardiolite stress test 03/31/2024 negative Echo 03/20/2025 65 % ejection fraction Plan discussed with: Patient Date of Service: March 24, 2025 Billing Provider: NATHALY RAWLS MD Common Visit Codes: [id number] INP/OBS CARE(HIGH) NATHALY RAWLS MD March 24, 2025 18:04
[2025-03-24 19:31] LABS: CRP High Sensitivity 0.39 mg/dL (<1.0)
[2025-03-24 20:05] LABS: Erythrocyte Sedimentation Rate 14 mm/hr (0-20)
[2025-03-25] VITALS (7 sets, daily range): BP systolic 125–167; BP diastolic 58–103; PULSE 60–84; RESP 15–20; TEMP 97.7–98.4; O2SAT 94–100
[2025-03-25 09:46] LABS: Urine Bacteria None Seen /hpf (None Seen)
[2025-03-25 10:20] LABS: Amphetamine Screen, Urine Neg (NEGATIVE); Barbiturate Scree,Urine Neg (NEGATIVE); Benzodiazephine Screen, Urine Neg (NEGATIVE); Cannabinoid Screen, Urine Pos (NEGATIVE); Cocaine Screen, Urine Neg (NEGATIVE); Opiate Scree,Urine Neg (NEGATIVE); Phencyclidine Screen, Urine Neg (NEGATIVE)
[2025-03-25 10:36] LABS: Urine Blood Negative /uL (Negative); Urine Clarity Clear (Clear); Urine Color Light-Yellow (Yellow); Urine Protein, UAD Negative (Negative); Urine Squamous Epithelial Cell FEW /hpf (<5); Urine Urobilinogen Normal (Negative); Urine WBC 1 /HPF (0-5); Urine pH 5.5 (5.0-9.0)
[2025-03-25] MEDS: NIFEdipine ER 30 MG TAB PO ONE (12:47)
[2025-03-25] MEDS ORDERED: NIFE1TAB30 PO (15:49)
--- NOTE | 2025-03-25 15:54 | DVHDS2 ---
Discharge Summary Date of Admission March 23, 2025 at 00:45 Date of Discharge: March 25, 2025 Labs/Diagnostic Data: Laboratory Results Test 03/25/25 09:26 03/24/25 18:43 03/23/25 05:47 03/23/25 03:42 Urine Color Light-yellow (Yellow) Urine Clarity Clear (Clear) Urine pH 5.5 (5.0-9.0) Urine Specific [place] 1.010 (1.001-1.035) Urine Protein Negative (Negative) Urine Ketones Negative (Negative) Urine Blood Negative /uL (Negative) Urine Nitrite Negative (Negative) Urine Bilirubin Negative (Negative) Urine Urobilinogen Normal mg/dL (Negative) Urine Leukocyte Esterase Negative /uL (Negative) Urine RBC 1 /hpf (0 - 4) Urine Microscopic WBC 1 /HPF (0-5) Urine Squamous Epithelial Cells Few /hpf (<5) Urine Bacteria None seen /hpf (None Seen) Urine Glucose Normal mg/dL (Normal) Urine Opiates Screen Neg (NEGATIVE) Urine Fentanyl Screen Neg (NEGATIVE) Urine Barbiturates Screen Neg (NEGATIVE) Urine Phencyclidine Screen Neg (NEGATIVE) Urine Amphetamines Screen Neg (NEGATIVE) Urine Benzodiazepines Screen Neg (NEGATIVE) Urine Cocaine Screen Neg (NEGATIVE) Urine Cannabinoids Screen Pos (NEGATIVE) Erythrocyte Sedimentation Rate 14 mm/hr (0-20) Creatine Kinase 69 U/L (34-145) C-Reactive Protein High Sensitivity 0.39 mg/dL (<1.0) White Blood Count 7.7 10^3/uL (4.4-10.8) Red Blood Count 4.98 10^6/uL (4.0-5.20) Hemoglobin 13.6 g/dL (12.2-16.2) Hematocrit 40.7 % (36.0-46.0) Mean Corpuscular Volume 81.8 fL (80.0-100.0) Mean Corpuscular Hemoglobin 27.4 pg (28.0-32.0) Mean Corpuscular Hemoglobin Concent 33.5 g/dL (32.0-36.0) Red Cell Distribution Width 15.3 % (11.8-14.3) Platelet Count 413 10^3/uL (140-450) Mean Platelet Volume 7.4 fL (6.9-10.8) Neutrophils (%) (Auto) 56.1 % (37.0-80.0) Lymphocytes (%) (Auto) 34.2 % (10.0-50.0) Monocytes (%) (Auto) 5.7 % (0.0-12.0) Eosinophils (%) (Auto) 3.2 % (0.0-7.0) Basophils (%) (Auto) 0.8 % (0.0-2.0) Neutrophils # (Auto) 4.3 10 ^3/uL (1.6-8.6) Lymphocytes # (Auto) 2.6 10 ^3/uL (0.4-5.4) Monocytes # (Auto) 0.4 10 ^3/uL (0-1.3) Eosinophils # (Auto) 0.2 10 ^3/uL (0-0.8) Basophils # (Auto) 0.1 10 ^3/uL (0-0.2) Nucleated Red Blood Cells 0.0 % B-Type Natriuretic Peptide 28.39 pg/mL (0-100) Sodium Level 137 mmol/L (136-145) Potassium Level 3.6 mmol/L (3.5-5.1) Chloride Level 104 mmol/L (98-107) Carbon Dioxide Level 21 mmol/L (20-31) Anion Gap 12 (5-15) Blood Urea Nitrogen 7 mg/dL (9-23) Creatinine 0.65 mg/dL (0.550-1.02) Glomerular Filtration Rate Calc 111 mL/min (>90) BUN/Creatinine Ratio 10.8 (10.0-20.0) Serum Glucose 102 mg/dL (74-106) Calcium Level 9.2 mg/dL (8.7-10.4) Magnesium Level 2.3 mg/dL (1.6-2.6) Total Bilirubin 0.5 mg/dL (0.2-1.0) Aspartate Amino Transferase (AST) 23 U/L (13-40) Alanine Aminotransferase (ALT) 28 U/L (7-40) Alkaline Phosphatase 92 U/L (46-116) Troponin I High Sensitivity 4 ng/L (</=34) Total Protein 7.4 g/dL (5.7-8.2) Albumin 4.5 g/dL (3.2-4.8) Lipase 32 U/L (12-53) Other Laboratory Tests 03/23/25 05:47 03/23/25 03:42 Brief Hx & Hospital Course: This is a 45-year-old female with past medical history of hypertension, dyslipidemia, prediabetes, anxiety and asthma transfer from [facility], had admitted due to chest pain. Per patient, yesterday upon waking up from sleep, developed left-sided chest pain. She describes the pain sharp, 9/10 in intensity, radiates to the left shoulder and left side of neck, worsened with taking deep breath, changing position and lying flat on the bed, mildly improved upon lying at 30-45 degree. Per patient, she has an intermittent chest pain since 4 years, with no clear exacerbating or relieving factor, previously the pain was substernal and diffuse, but this time she localizes the pain with 1 finger at left lower sternal border and reproducible with palpation. She also reports nausea, shortness of breaths, and dry cough. She denies fever, vomiting, palpitation, or any recent sick contacts and trauma. Patient underwent Stress test which was negative. Patients blood pressure is uncontrolled. Will add Procardia XL for better control. Monitor BP at home and record readings for Dr. Johnson. Operations or Procedures APPROVED REPORT Exam: Nuclear Stress Test BMI: 0 Stress Test Details HR Max Heart Rate (APMHR): 175.863180 bpm Target HR (85% APMHR): 148.690327 bpm BP ECG Stress ECG Conclusion lvef 61% no severe ischemia noted NM EXAM: Myocardial Perfusion REST/STRESS Imaging Protocol: Rest Tc-99m/Stress Tc-99m 1 day Resting Data Rest SPECT myocardial perfusion imaging was performed in supine position 60 minutes following the intravenous injection of 12 mCi of Tc-99m Sestamibi. Time of rest injection: 10:20 Date: 03/23/2025 Time of rest imagin:20 Date: 03/23/2025 Administration Route: IV Administration Site: Right Hand Pharmacologic Stress Pharmacologic stress test was performed by injecting Regadenoson 0.4 mg IV push followed by the intravenous injection of 31.0 mCi of Tc-99m Sestamibi. Time of stress injection: 11:06 Date: 03/23/2025 Time of stress imagin:06 Date: 03/23/2025 Administration Route: IV Administration Site: Right Hand Gated Stress SPECT was performed 60 minutes after stress injection. The images were gated to evaluate regional wall motion and calculate left ventricular ejection fraction. Stress only was performed in the position. Nuclear Conclusion lvef 61% no severe ischemia noted Condition at Discharge: Stable Final Diagnosis/Problems List Chest pain, noncardiac, likely due to musculoskeletal/costochondritis cardiology consult appreciated Hypertensive urgency Sinus bradycardia History of renal artery stenosis Dyslipidemia Prediabetes Anxiety, insomnia Cardiolite stress test 03/31/2024 negative Echo 03/20/2025 65 % ejection fraction Discharge Instruct/Medications Diet: Cardiac 2g Na,low cholest (2 gm sodium, low cholesterol) Activity: Light activity Follow Up/Referral: Dr. Johnson Medications: see med [facility] Discharge Statement: "Patient was advised to return to the ER or call 911 if any headaches, dizziness, shortness of breath, chest pain, abdominal pain, bleeding, fevers, or worsening of medical condition. Patient was counseled about treatment plan, medications, possible side effects, patientverbalized understanding. All questions were answered to the best of my ability. This discharge took greater then 30 minutes in planning, reviewing documentation, counseling the patient, and discussing with other team members." ASSESSMENT ASSESSMENT Assessment Date of Service: March 25, 2025 Billing Provider: NATHALY RAWLS MD Common Visit Codes: [id number] DISCH DAY >30min NATHALY RAWLS MD March 25, 2025 15:54
[2025-03-25] MEDS: hydrALAZINE HCL 25 MG TAB PO ONE (16:52)
[2025-03-25] MEDS: MORPHINE SULFATE INJ 2 MG/ml SYRG IV PRN (16:53)
[2025-03-26 01:00] VITALS: BP 145/87; PULSE 84; RESP 18; TEMP 97.6; O2SAT 95
[2025-03-26 05:00] VITALS: BP 147/99; PULSE 77; RESP 18; TEMP 98.4; O2SAT 96
[2025-03-26 06:07] LABS: Rheumatoid Arthritis Factor <10.0 IU/mL (<14.0)
[2025-03-26 09:11] VITALS: BP 139/87; PULSE 94; RESP 20; TEMP 98.3; O2SAT 96
[2025-03-26 11:07] LABS: Anti-Centromere B Antibody <0.2 AI (0.0-0.9); Anti-Jo-1 Antibody <0.2 AI (0.0-0.9); Anti-dsDNA Antibody 4 IU/mL (0-9); Antichromatin Antibody <0.2 AI (0.0-0.9); Antiscleroderma-70 Antibody 3.1 AI (0.0-0.9); RNP Antibody 0.2 AI (0.0-0.9); Sjogren's Anti-SS-A Antibody <0.2 AI (0.0-0.9); Sjogren's Anti-SS-B Antibody 0.2 AI (0.0-0.9); Smith Antibody <0.2 AI (0.0-0.9)
--- NOTE | 2025-03-26 11:44 | ECG ---
[facility] Test Date: 2025-03-25 Test Time: 15:46:27 Pat Name: BROOKE BAEZ Department: Respiratoy Room: [address] [place] [address] Gender: F Auditor Tax: MJ : 1980 Requested By: NATHALY RAWLS Order Number: [id number] Reading MD: Jerry Valero Measurements Intervals [place] Rate: 66 P: 34 VT: 143 QRS: 33 QRSD: 100 T: 7 QT: 422 QTc: 443 Interpretive Statements Sinus rhythm Probable left atrial enlargement Electronically Signed On 03-26-2025 20:54:11 PDT by Jerry Valero Please click the below link to view image of tracing.
--- NOTE | 2025-03-26 11:44 | ECG ---
[facility] Test Date: 2025-03-25 Test Time: 15:43:52 Pat Name: BROOKE BAEZ Department: Respiratoy Room: [address] [place] [address] Gender: F Review Scheduling Coordinator: MJ : 1980 Requested By: ADARSH MALDONADO Order Number: [id number] Reading MD: Jerry Valero Measurements Intervals [place] Rate: 66 P: 23 RI: 145 QRS: 29 QRSD: 105 T: 17 QT: 412 QTc: 432 Interpretive Statements Sinus rhythm Baseline wander in lead(s) II,III,aVF,V3,V4,V6 Electronically Signed On 03-26-2025 20:54:08 PDT by Jerry Valero Please click the below link to view image of tracing.
--- NOTE | 2025-03-26 14:18 | DVHPN2 ---
Subjective No new events. Patient was discharged yesterday by Dr. Florez. The discharge was held until today. Reviewed: Care Plan, H&P, Labs, Medications, Previous Orders, Radiology Changes from previous H/P or p: No Changes Objective Vitals Vital Signs Date Time Temp Pulse Resp B/P (MAP) Pulse Ox O2 Delivery O2 Flow Rate FiO2 03/26/25 09:11 98.3 94 20 139/87 (104) 96 98.3 03/26/25 08:00 Room Air* 0 21 Intake/Output Intake and Output 03/26/25 07:00 Intake Total 2100 ml Balance 2100 ml Intake Oral 2100 ml # Voids 7 General Appearance: Other (No physical exam done on the patient's) Medications Current Medications Medications Dose Ordered Sig/Aviva Route Start Time Stop Time Status Last Admin Dose Admin Clonidine HCl 0.2 mg PRN PRN PO 03/23/25 14:00 UNV Laboratory Results Laboratory Tests 03/23/25 03:42 03/23/25 05:47 Urinalysis Test 03/25/25 09:26 Urine Color Light-yellow (Yellow) Urine Clarity Clear (Clear) Urine pH 5.5 (5.0-9.0) Urine Specific [place] 1.010 (1.001-1.035) Urine Protein Negative (Negative) Urine Ketones Negative (Negative) Urine Blood Negative /uL (Negative) Urine Nitrite Negative (Negative) Urine Bilirubin Negative (Negative) Urine Urobilinogen Normal mg/dL (Negative) Urine Leukocyte Esterase Negative /uL (Negative) Urine RBC 1 /hpf (0 - 4) Urine Microscopic WBC 1 /HPF (0-5) Urine Squamous Epithelial Cells Few /hpf (<5) Urine Bacteria None seen /hpf (None Seen) Urine Glucose Normal mg/dL (Normal) Microbiology Microbiology Date/Time Source Procedure Growth Status 03/23/25 05:55 Nose MRSA Screen - Final Complete Assessment/Plan Assessment/Plan Chest pain Dyslipidemia Hypertension Prediabetes Anxiety Asthma Plan: Patient discharged home. Stress test was negative. Blood pressure was controlled. Plan discussed with: Other (Nursing) Date of Service: March 26, 2025 Billing Provider: MADISYN MAHER MD Common Visit Codes: [id number] INP/OBS CARE(MOD) MADISYN MAHER MD March 26, 2025 14:18
[2025-03-26 19:06] LABS: CCP IgG/IgA Antibody 8 units (0-19)
== END 2025-03-26 12:30 | disposition still patient (30) | DRG 206 ==
LOC: EAST 03-23 00:45
PROVIDERS: ADMIT Internal Medicine; ATTEND Internal Medicine
DX: M94.0 Chondrocostal junction syndrome [Tietze] (principal); I16.1 Hypertensive emergency; Z68.41 Body mass index [BMI] 40.0-44.9, adult; E66.9 Obesity, unspecified; E78.5 Hyperlipidemia, unspecified; F41.9 Anxiety disorder, unspecified; G47.00 Insomnia, unspecified; I10 Essential (primary) hypertension; R00.1 Bradycardia, unspecified; J45.909 Unspecified asthma, uncomplicated; R73.03 Prediabetes; Z82.49 Family history of ischemic heart disease and other diseases of the circulatory system; Z88.0 Allergy status to penicillin; Z83.3 Family history of diabetes mellitus; Z79.899 Other long term (current) drug therapy
CPT/HCPCS: 36415; 78452; 80053; 80307; 81001; 82550; 83516; 83690; 83735; 83880; 84484; 85025; 85652; 86141; 86200; 86225; 86235; 86431; 87081; 93005; 93017; G0378; J2405; J2470

== ENCOUNTER → 2025-03-28 | Outpatient (CLI) | payer BC ==
[~2025-03-28] MED LIST changes: +NIFE1TAB30 PO
== END | disposition home or self-care (01) ==
LOC: LAB 16:10
PROVIDERS: ATTEND Obstetrics & Gynecology
DX: N39.46 Mixed incontinence (principal)
CPT/HCPCS: 87086